=== PATIENT | male | born 1970 | race Hispanic/Latino ===

== ENCOUNTER 2019-12-08 20:42 | Observation (INO) | payer OTHER ==
[2019-12-08] MEDS ORDERED: NA CHLORIDE 0.9% 1,000 ML ONE (22:13)
[2019-12-08] MEDS ORDERED: MORPHINE 4 MG/ML SYR ONE (22:13)
[2019-12-08] MEDS ORDERED: FAMOTIDINE 20 MG/2 ML VIAL IV ONE (22:13)
[2019-12-08] MEDS ORDERED: ONDANSETRON 4 MG/2 ML VIAL ONE (22:14)
[2019-12-08 22:23] LABS: Absolute Lymphocytes (CBC) 0.4 K/uL (0.7-4.9); Hematocrit 34.9 % (39.6-49.0); Lymphocytes % 10.7 % (15.3-44.8); MPV 8.9 fL (7.6-11.3); Protime INR 1.7; RBC Red Blood Cell Count 3.56 M/uL (4.33-5.43)
[2019-12-08 22:41] LABS: ALT/SGPT 40 U/L (12-78); AST/SGOT 68 U/L (15-37); Alkaline Phosphatase 102 U/L (45-117); BUN Blood Urea Nitrogen 13 mg/dL (7-18); Bicarbonate 27 mmol/L (21-32); Bilirubin Total 3.4 mg/dL (0.2-1.0); Glucose Level 92 mg/dL (74-106); Lipase 115 U/L (73-393); Magnesium 1.7 mg/dL (1.8-2.4); NT PRO-BNP 60 pg/mL (<125); Potassium 3.8 mmol/L (3.5-5.1); Protein, Total 7.4 g/dL (6.4-8.2); Sodium Level 140 mmol/L (136-145); Troponin (Emerg Dept Use Only) < 0.02 ng/mL (0.0-0.045)
[2019-12-08] MEDS ORDERED: MAGNESIUM SULFATE 1 gm IVPB 1 GM/100 ML BAG IV ONE (23:48)
[2019-12-09 00:13] LABS: Blood Morphology Comment NOT SEEN (NOT SEEN); Platelet Estimate DECR; White Blood Cell Scan OK
[2019-12-09] MEDS ORDERED: MORPHINE 4 MG/ML SYR IV PRN (01:22)
[2019-12-09] MEDS ORDERED: ONDANSETRON 4 MG/2 ML VIAL IV PRN (01:22)
--- NOTE | 2019-12-09 01:24 | ER ---
Nurse's Notes [facility] Name: Antoine Gomez Age: 49 yrs Sex: Male : 1970 Arrival Date: 12/08/2019 Time: 20:46 Bed 20 Private MD: Diagnosis: Ascites;Ventral hernia;Unspecified cirrhosis of liver-right lobe of liver mass;Abdominal tenderness;Hypomagnesemia;Pleural effusion in conditions classified elsewhere-bilateral Presentation: 12/07 20:50 Chief complaint: Patient states: He has had a hernia for the past year and it started aj1 to have blisters on it last week and then today those blisters started bleeding. Coronavirus screen: The patient has NOT traveled to a country currently being monitored by the CDC within the last 14 days. Ebola Screen: Patient denies travel to an Ebola-affected area in the 21 days before illness onset. Initial Sepsis Screen: Does the patient meet any 2 criteria? No. Patient's initial sepsis screen is negative. Does the patient have a suspected source of infection? No. Patient's initial sepsis screen is negative. Risk Assessment: Do you want to hurt yourself or someone else? Patient reports no desire to harm self or others. 20:50 Method Of Arrival: Ambulatory aj1 20:50 Acuity: CONSUELO 3 aj1 22:30 Onset of symptoms is unknown. Triage Assessment: 20:52 General: Appears in no apparent distress. comfortable, Behavior is calm, cooperative, aj1 appropriate for age. Pain: Complains of pain in abdomen. Neuro: Level of Consciousness is awake, alert, obeys commands, Oriented to person, place, time, situation. Cardiovascular: Patient's skin is warm and dry. Respiratory: Airway is patent Respiratory effort is even, unlabored, Respiratory pattern is regular, symmetrical. Derm: Wound noted abdomen Wound is hernia is protruding from stomach with some wounds noted to area. Scant amount of bleeding noted at this time. Historical: - Allergies: 20:52 No Known Allergies; aj1 - Home Meds: 20:52 "high blood pressure pills" [Active]; Lasix Oral [Active]; aj1 - PMHx: 20:52 Hypertension; liver cancer; aj1 - Immunization history:: Flu vaccine is not up to date. - Social history:: Smoking status: Patient/guardian denies using tobacco. - Family history:: not pertinent. Screenin/12 04:50 Abuse screen: Denies threats or abuse. Denies injuries from another. Nutritional wh screening: No deficits noted. Tuberculosis screening: No symptoms or risk factors identified. Fall Risk None identified. Assessment: 12/07 22:30 General: Appears in no apparent distress. Behavior is calm, cooperative, appropriate wh for age. Pain: Complains of pain in umbilical area Pain does not radiate. Pain currently is 8 out of 10 on a pain scale. Quality of pain is described as aching. Neuro: Level of Consciousness is awake, alert, obeys commands, Oriented to person, place, time, situation, Appropriate for age. Cardiovascular: Heart tones S1 S2. Respiratory: Airway is patent Respiratory effort is even, unlabored, Respiratory pattern is regular, symmetrical, Breath sounds are clear bilaterally. GI: Abdomen is round distended, noted to have ascites, Bowel sounds Abd is rigid Reports lower abdominal pain. GI: umbillical hernia. : No signs and/or symptoms were reported regarding the genitourinary system. : EENT: No signs and/or symptoms were reported regarding the EENT system. Derm: Skin is intact, is healthy with good turgor, Skin is pink, warm \\T\\ dry. normal. Musculoskeletal: Circulation, motion, and sensation intact. 23:35 Reassessment: Patient appears in no apparent distress at this time. No changes from previously documented assessment. Patient and/or family updated on plan of care and expected duration. Pain level reassessed. Patient is alert, oriented x 3, equal unlabored respirations, skin warm/dry/pink. 12/08 00:35 Reassessment: Patient appears in no apparent distress at this time. No changes from previously documented assessment. Patient and/or family updated on plan of care and expected duration. Pain level reassessed. Patient is alert, oriented x 3, equal unlabored respirations, skin warm/dry/pink. 02:05 Reassessment: Patient appears in no apparent distress at this time. No changes from previously documented assessment. Patient and/or family updated on plan of care and expected duration. Pain level reassessed. Patient is alert, oriented x 3, equal unlabored respirations, skin warm/dry/pink. Explained POC need for admit, will stay here for a while as ER hold. 10:48 Reassessment: Pt. went to radiology for paracentesis, will go straight to the floor rb1 after the procedure. 11:25 Reassessment: Called report to JESENIA Hansen. Information from the SB[facility] was given. All rb1 questions asked and answered. Vital Signs: 12/07 20:50 BP 134 / 94; Pulse 79; Resp 18; Temp 98.3; Pulse Ox 97% on R/A; Weight 77.11 kg (R); aj1 Height 5 ft. 8 in. (172.72 cm) (R); Pain 9/10; 23:00 BP 122 / 91; Pulse 80; Resp 18; Pulse Ox 97% on R/A; wh 12/08 00:00 BP 119 / 90; Pulse 75; Resp 18; Pulse Ox 96% on R/A; wh 01:00 BP 120 / 98; Pulse 78; Resp 16; Pulse Ox 97% ; wh 02:00 BP 133 / 90; Pulse 74; Resp 18; Pulse Ox 96% on R/A; wh 12/07 20:50 Body Mass Index 25.85 (77.11 kg, 172.72 cm) aj ED Course: 12/07 20:46 Patient arrived in ED. jg7 20:51 Triage completed. aj1 20:52 Arm band placed on Patient placed in waiting room, Patient notified of wait time. aj 21:16 Rufino Borges MD is Attending Physician. [facility] 21:30 Annie Ken is Primary Nurse. 22:15 Inserted saline lock: 18 gauge in right antecubital area, using aseptic technique. Blood collected. 22:20 XRAY Chest (1 view) In Process Unspecified. EDMS 22:30 Patient has correct armband on for positive identification. Placed in gown. Bed in low wh position. Call light in reach. Side rails up X 1. equipment monitor phototypesetting on. Pulse ox on. NIBP on. 12/08 01:22 Ryan Jones MD is Hospitalizing Provider. [facility] 02:30 No provider procedures requiring assistance completed. Patient admitted, IV remains in place. Administered Medications: 12/07 22:08 Drug: NS 0.9% 1000 ml Route: IV; Rate: 125 ml/hr; Site: right antecubital; 12/08 04:47 Follow up: Response: No adverse reaction; IV Status: Order to discontinue infusion 12/07 22:10 Drug: morphine 2 mg {Note: RASS 0.} Route: IVP; Site: right antecubital; 12/08 04:47 Follow up: Response: No adverse reaction; Pain is decreased; RASS: Alert and Calm (0) 12/07 22:12 Drug: Pepcid 20 mg Route: IVP; Site: right antecubital; 12/08 04:47 Follow up: Response: No adverse reaction 12/07 22:14 Drug: Zofran (Ondansetron) 4 mg Route: IVP; Site: right antecubital; 12/08 04:47 Follow up: Response: No adverse reaction; Nausea is decreased 12/07 23:47 Drug: Magnesium Sulfate 1 grams Route: IVPB; Infused Over: 1 hrs; Site: right antecubital; 12/08 04:48 Follow up: Response: No adverse reaction; IV Status: Completed infusion 03:25 Not Given (Duplicate Order; Documented in [facility]): Vitamin K1 10 mg Sub-Q once Outcome: 01:23 Decision to Hospitalize by Provider. [facility] 02:30 Admitted to ER Hold. Please see [facility] for further documentation. 02:30 Condition: stable 02:30 Instructed on the need for admit. 10:48 Patient left the ED. rb1 10:48 Admitted to [facility] 10:48 Condition: stable 10:48 Instructed on the need for admit. Signatures: Dispatcher [employer] EDCaryn Perez RN RN aj1 Rufino Borges MD MD cha Barber, Rebecca, RN RN rb1 Annie Ken Rajat Hughes RN RN mg2 Enedina Barajas jg7 Corrections: (The following items were deleted from the chart) 19:27 11:19 Patient left the ED. mg2 rb1
--- NOTE | 2019-12-09 01:24 | EDPHYS ---
Physician Documentation [facility] Name: Antoine Gomez Age: 49 yrs Sex: Male : 1970 Arrival Date: 12/08/2019 Time: 20:46 Bed 20 Private MD: ED Physician Rufino Borges HPI: 12/07 21:38 This 49 yrs old Male presents to ER via Ambulatory with complaints of BLEEDING taya HERNIA. 21:38 The patient presents with abdominal pain abdominal distention. Onset: The taya symptoms/episode began/occurred 2 week(s) ago. The symptoms do not radiate. Associated signs and symptoms: none. The symptoms are described as crampy. Modifying factors: The symptoms are alleviated by supine position, the symptoms are aggravated by pressure, walking. The patient has not experienced similar symptoms in the past. Historical: - Allergies: 20:52 No Known Allergies; aj1 - Home Meds: 20:52 "high blood pressure pills" [Active]; Lasix Oral [Active]; aj1 - PMHx: 20:52 Hypertension; liver cancer; aj1 - Immunization history:: Flu vaccine is not up to date. - Social history:: Smoking status: Patient/guardian denies using tobacco. - Family history:: not pertinent. ROS: 21:38 Constitutional: Negative for fever, chills, and weight loss, Eyes: Negative for injury, taya pain, redness, and discharge, ENT: Negative for injury, pain, and discharge, Neck: Negative for injury, pain, and swelling, Cardiovascular: Negative for chest pain, palpitations, and edema, Respiratory: Negative for shortness of breath, cough, wheezing, and pleuritic chest pain, Back: Negative for injury and pain, : Negative for injury, bleeding, discharge, and swelling, MS/Extremity: Negative for injury and deformity, Skin: Negative for injury, rash, and discoloration, Neuro: Negative for headache, weakness, numbness, tingling, and seizure, Psych: Negative for depression, anxiety, suicide ideation, homicidal ideation, and hallucinations, Allergy/Immunology: Negative for hives, rash, and allergies, Endocrine: Negative for neck swelling, polydipsia, polyuria, polyphagia, and marked weight changes, Hematologic/Lymphatic: Negative for swollen nodes, abnormal bleeding, and unusual bruising. 21:38 Abdomen/GI: Positive for abdominal pain, abdominal distension, of the right upper quadrant, left upper quadrant, right lower quadrant and left lower quadrant. Exam: 21:38 Constitutional: This is a well developed, well nourished patient who is awake, alert, taya and in no acute distress. Head/Face: Normocephalic, atraumatic. Eyes: Pupils equal round and reactive to light, extra-ocular motions intact. Lids and lashes normal. Conjunctiva and sclera are non-icteric and not injected. Cornea within normal limits. Periorbital areas with no swelling, redness, or edema. ENT: Nares patent. No nasal discharge, no septal abnormalities noted. Tympanic membranes are normal and external auditory canals are clear. Oropharynx with no redness, swelling, or masses, exudates, or evidence of obstruction, uvula midline. Mucous membranes moist. Neck: Trachea midline, no thyromegaly or masses palpated, and no cervical lymphadenopathy. Supple, full range of motion without nuchal rigidity, or vertebral point tenderness. No Meningismus. Chest/axilla: Normal chest wall appearance and motion. Nontender with no deformity. No lesions are appreciated. Cardiovascular: Regular rate and rhythm with a normal S1 and S2. No gallops, murmurs, or rubs. Normal PMI, no JVD. No pulse deficits. Respiratory: Lungs have equal breath sounds bilaterally, clear to auscultation and percussion. No rales, rhonchi or wheezes noted. No increased work of breathing, no retractions or nasal flaring. Back: No spinal tenderness. No costovertebral tenderness. Full range of motion. Male : Normal genitalia with no discharge or lesions. Skin: Warm, dry with normal turgor. Normal color with no rashes, no lesions, and no evidence of cellulitis. MS/ Extremity: Pulses equal, no cyanosis. Neurovascular intact. Full, normal range of motion. Neuro: Awake and alert, GCS 15, oriented to person, place, time, and situation. Cranial nerves II-XII grossly intact. Motor strength 5/5 in all extremities. Sensory grossly intact. Cerebellar exam normal. Normal gait. Psych: Awake, alert, with orientation to person, place and time. Behavior, mood, and affect are within normal limits. 21:38 Abdomen/GI: Inspection: distension, Bowel sounds: normal, Palpation: mild abdominal tenderness, in all quadrants, Liver: no appreciated palpable abnormalities, Hernia: noted in the umbilical area, incarceration, is not appreciated, tenderness, that is mild, bowel sounds are appreciated on auscultation. Vital Signs: 20:50 BP 134 / 94; Pulse 79; Resp 18; Temp 98.3; Pulse Ox 97% on R/A; Weight 77.11 kg (R); aj1 Height 5 ft. 8 in. (172.72 cm) (R); Pain 9/10; 23:00 BP 122 / 91; Pulse 80; Resp 18; Pulse Ox 97% on R/A; wh 12/08 00:00 BP 119 / 90; Pulse 75; Resp 18; Pulse Ox 96% on R/A; 01:00 BP 120 / 98; Pulse 78; Resp 16; Pulse Ox 97% ; 02:00 BP 133 / 90; Pulse 74; Resp 18; Pulse Ox 96% on R/A; 12/07 20:50 Body Mass Index 25.85 (77.11 kg, 172.72 cm) [facility] MDM: 12/07 21:17 Patient medically screened. [facility] 21:40 Data reviewed: vital signs, nurses notes, lab test result(s), EKG, radiologic studies, [facility] CT scan, plain films. 12/07 21:40 Order name: Basic Metabolic Panel; Complete Time: 23:26 [facility] 12/07 21:40 Order name: CBC with Diff; Complete Time: 01: [facility] 12/07 21:40 Order name: LFT's; Complete Time: 23:26 [facility] 12/07 21:40 Order name: Magnesium; Complete Time: 23:26 [facility] 12/07 21:40 Order name: NT PRO-BNP; Complete Time: 23:26 [facility] 12/07 21:40 Order name: PT-INR; Complete Time: 23:26 [facility] 12/07 21:40 Order name: Troponin (emerg Dept Use Only); Complete Time: 23:26 [facility] 12/07 21:40 Order name: Creatinine for Radiology; Complete Time: 01: [facility] 12/07 21:40 Order name: Lipase; Complete Time: 23:26 [facility] 12/07 21:40 Order name: AMMONIA; Complete Time: 23:26 [facility] 12/07 22:12 Order name: Lactate; Complete Time: 23:26 [facility] 12/07 22:30 Order name: CBC Smear Scan; Complete Time: 01:01 [facility] 12/08 06:04 Order name: Protime (+INR); Complete Time: 07:38 [facility] 12/08 06:04 Order name: PTT, Activated Partial Thromb; Complete Time: 07:38 [facility] 12/07 21:40 Order name: XRAY Chest (1 view) [facility] 12/07 21:40 Order name: EKG; Complete Time: 21:43 [facility] 12/07 21:40 Order name: Cardiac monitoring; Complete Time: 22:01 [facility] 12/07 21:40 Order name: EKG - Nurse/Tech; Complete Time: 22:01 [facility] 12/07 21:40 Order name: IV Saline Lock; Complete Time: 22:01 [facility] 12/07 21:40 Order name: CT Abd/Pelvis - PO and IV Contrast [facility] 12/08 06:12 Order name: Ammonia; Complete Time: 07:38 [facility] 12/08 06:15 Order name: CBC with Automated Diff [facility] 12/08 06:16 Order name: Comprehensive Metabolic Panel; Complete Time: 07:38 [facility] 12/08 10:56 Order name: CT [facility] 12/07 21:40 Order name: Labs collected and sent; Complete Time: 22: [facility] 12/07 21:40 Order name: O2 Per Protocol; Complete Time: 22: [facility] 12/07 21:40 Order name: O2 Sat Monitoring; Complete Time: 22:02 [facility] Administered Medications: 22:08 Drug: NS 0.9% 1000 ml Route: IV; Rate: 125 ml/hr; Site: right antecubital; 12/08 04:47 Follow up: Response: No adverse reaction; IV Status: Order to discontinue infusion 12/07 22:10 Drug: morphine 2 mg {Note: RASS 0.} Route: IVP; Site: right antecubital; 12/08 04:47 Follow up: Response: No adverse reaction; Pain is decreased; RASS: Alert and Calm (0) 12/07 22:12 Drug: Pepcid 20 mg Route: IVP; Site: right antecubital; 12/08 04:47 Follow up: Response: No adverse reaction 12/07 22:14 Drug: Zofran (Ondansetron) 4 mg Route: IVP; Site: right antecubital; 12/08 04:47 Follow up: Response: No adverse reaction; Nausea is decreased 12/07 23:47 Drug: Magnesium Sulfate 1 grams Route: IVPB; Infused Over: 1 hrs; Site: right antecubital; 12/08 04:48 Follow up: Response: No adverse reaction; IV Status: Completed infusion 03:25 Not Given (Duplicate Order; Documented in [employer]): Vitamin K1 10 mg Sub-Q once Disposition: 12/09/19 01:23 Hospitalization ordered by Ryan Jones for Observation. Preliminary diagnosis are Ascites, Ventral hernia, Unspecified cirrhosis of liver - right lobe of liver mass, Abdominal tenderness, Hypomagnesemia, Pleural effusion in conditions classified elsewhere - bilateral. - Bed requested for Telemetry/MedSurg (observation). - Status is Observation. mg2 - Condition is Fair. - Problem is new. - Symptoms have improved. Signatures: Dispatcher [employer] EDCaryn Perez RN RN aj1 Verena Naylor RN RN dw Anderson, Corey, MD MD cha Habalo, Winsy Rajat Hughes RN RN mg2 Corrections: (The following items were deleted from the chart) 01:24 01:23 Hospitalization Ordered by Ryan Jones MD for Observation. Preliminary taya diagnosis is Ascites; Ventral hernia; Unspecified cirrhosis of liver - right lobe of liver mass. Bed requested for Telemetry/MedSurg (observation). Status is Observation. Condition is Fair. Problem is new. Symptoms have improved. taya 02:05 01:24 12/09/2019 01:23 Hospitalization Ordered by Ryan Jones MD for Observation. taya Preliminary diagnosis is Ascites; Ventral hernia; Unspecified cirrhosis of liver - right lobe of liver mass; Abdominal tenderness; Hypomagnesemia. Bed requested for Telemetry/MedSurg (observation). Status is Observation. Condition is Fair. Problem is new. Symptoms have improved. taya 02:06 02:05 12/09/2019 01:23 Hospitalization Ordered by Ryan Jones MD for Observation. dw Preliminary diagnosis is Ascites; Ventral hernia; Unspecified cirrhosis of liver - right lobe of liver mass; Abdominal tenderness; Hypomagnesemia; Pleural effusion in conditions classified elsewhere - bilateral. Bed requested for Telemetry/MedSurg (observation). Status is Observation. Condition is Fair. Problem is new. Symptoms have improved. taya 09:49 02:06 12/09/2019 01:23 Hospitalization Ordered by Ryan Jones MD for Observation. dw Preliminary diagnosis is Ascites; Ventral hernia; Unspecified cirrhosis of liver - right lobe of liver mass; Abdominal tenderness; Hypomagnesemia; Pleural effusion in conditions classified elsewhere - bilateral. Bed requested for [facility] ER HOLD. Status is Observation. Condition is Fair. Problem is new. Symptoms have improved. dw 11:19 09:49 12/09/2019 01:23 Hospitalization Ordered by Ryan Jones MD for Observation. mg2 Preliminary diagnosis is Ascites; Ventral hernia; Unspecified cirrhosis of liver - right lobe of liver mass; Abdominal tenderness; Hypomagnesemia; Pleural effusion in conditions classified elsewhere - bilateral. Bed requested for Telemetry/MedSurg (observation). Status is Observation. Condition is Fair. Problem is new. Symptoms have improved. dw
[2019-12-09] MEDS ORDERED: LACTULOSE 20 GM/30 ML UCUP PO PRN (01:27)
[2019-12-09] MEDS ORDERED: FUROSEMIDE 20 MG/ 2ML VIAL IV ONE ×2 (01:27→08:00)
[2019-12-09] MEDS ORDERED: ALBUMIN HUMAN 25% 100 ML IV ONE ×3 (01:27→09:00)
[2019-12-09] MEDS ORDERED: VITAMIN K (ADULT) 10 MG/ML SQ SCH ×2 (02:00→08:00)
[2019-12-09 03:28] VITALS: BMI 25.8
[2019-12-09 06:02] LABS: Protime INR 1.65
[2019-12-09 06:12] LABS: Absolute Lymphocytes (CBC) 0.3 K/uL (0.7-4.9); Basophils % 0.7 % (0-1.3); Hematocrit 33.3 % (39.6-49.0); Lymphocytes % 10.9 % (15.3-44.8); MPV 9.2 fL (7.6-11.3); RBC Red Blood Cell Count 3.42 M/uL (4.33-5.43)
[2019-12-09 06:16] LABS: ALT/SGPT 39 U/L (12-78); AST/SGOT 67 U/L (15-37); Albumin 2.3 g/dL (3.4-5.0); Alkaline Phosphatase 88 U/L (45-117); BUN Blood Urea Nitrogen 12 mg/dL (7-18); Bicarbonate 28 mmol/L (21-32); Bilirubin Total 3.6 mg/dL (0.2-1.0); Glucose Level 77 mg/dL (74-106); Potassium 3.6 mmol/L (3.5-5.1); Protein, Total 7.4 g/dL (6.4-8.2); Sodium Level 139 mmol/L (136-145)
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
--- NOTE | 2019-12-09 07:56 | RAD REPORT ---
EXAM DESCRIPTION: Irvin Single View12/08/2019 10:19 pm CLINICAL HISTORY: Abdominal pain COMPARISON: none FINDINGS: Moderate bilateral pleural effusions left greater than right with bibasilar atelectasis The heart is normal size Mediastinum is mildly prominent which may indicate lymphadenopathy or vascularity
[2019-12-09] MEDS: VANCOMYCIN 1.25 GM in NA CHLORIDE 0.9% 250 ML IVPB SCH ×2 (08:00→20:03)
[2019-12-09 08:23] LABS: Anisocytosis 1+; Blood Morphology Comment NOTED (NOT SEEN); Platelet Estimate DECR; White Blood Cell Scan OK
[2019-12-09] MEDS ORDERED: FUROSEMIDE 20 MG/ 2ML VIAL ONE (08:47)
[2019-12-09] MEDS ORDERED: VITAMIN K (ADULT) 10 MG/ML ONE (08:48)
[2019-12-09] MEDS ORDERED: ALBUMIN HUMAN 25% 50 ML IV ONE (08:48)
--- NOTE | 2019-12-09 08:51 | EKG ---
Test Date: 2019-12-08 Test Time: 21:59:35 Tap And Die Maker Technician: SY MEASUREMENT RESULTS: Intervals: Rate: 78 MO: 98 QRSD: 96 QT: 388 QTc: 442 [place]: P: -5 MO: 98 QRS: -5 T: 56 INTERPRETIVE STATEMENTS: Sinus rhythm with short MO Low voltage QRS Borderline ECG No previous ECG available for comparison Electronically Signed On 12-09-19 08:50:26 CDT by Jeremy Ferrer
[2019-12-09] MEDS ORDERED: INFLUENZA VACCINE (for 3y+) 0.5 ML DOSE IMVAC ONE (09:00)
[2019-12-09] MEDS: PROPRANOLOL HCL 10 MG TAB PO SCH ×2 (09:00→20:12)
[2019-12-09] MEDS: SPIRONOLACTONE 25 MG TABLET PO SCH ×2 (09:00→20:09)
--- NOTE | 2019-12-09 10:39 | RAD REPORT ---
EXAM DESCRIPTION: CT - Abdomen Pelvis W Contrast - 12/09/2019 6:29 am CLINICAL HISTORY: 49 years Male ABD PAIN COMPARISON: None TECHNIQUE: Images were obtained in axial, sagittal, and coronal planes. Intravenous contrast was adm inistered. This exam was performed according to our departmental dose-optimization program which includes use of Automated Exposure Control, adjustment of the mA and/or kV according to patient size and/or use of i terative reconstruction technique. FINDINGS: Severe ascites. Nodular hepatic contour consistent with cirrhotic change. 7.1 x 6.2 cm ill -defined nodular low-attenuation lesion posterior right lobe of liver. Hepatocellular carcinoma not e xcluded. Spleen is enlarged measuring 19.3 cm in greatest dimension. Large varices epigastric region. Recanali zation umbilical vein with extensive varices in anterior abdominal wall. large periumbilical hernia which contains ascitic fluid. Bilateral inguinal hernias containing mesent felix fat as well as ascitic fluid on right. No obstructing renal calcifications bilaterally. No hydronephrosis bilaterally. Unremarkable bladder. No dilatation abdominal aorta. Patent portal vein. No adenopathy. Appendix not well identified. Possible mucosal thickening small and large bowel however evaluation li mited in the presence of ascites. No bowel obstruction or perforation. Large bilateral pleural effusions. Airspace attenuation posterior lower lobes bilaterally likely comp ressive atelectatic change IMPRESSION: Severe ascites. Cirrhotic change involving liver. Splenomegaly. Extensive epigastric and anterior abdominal wall varices. 7.1 cm ill-defined low-attenuation lesion posterior right lobe liver. Hepatocellular carcinoma not ex cluded. Large periumbilical hernia which contains only ascitic fluid. Electronically signed by: Corina Asif MD 12/09/2019 12:51 AM CDT Due to temporary technical issues with the PACS/Fluency reporting system, reports are being signed by the in house radiologist as a courtesy to ensure prompt reporting. The interpreting radiologist is f ully responsible for the content of the report.
[2019-12-09] MEDS: PIPER/TAZO/NS 3.375gm 3.375 GM/100 ML BAG IVPB SCH ×2 (12:08→17:12)
--- NOTE | 2019-12-09 12:40 | RAD REPORT ---
EXAM DESCRIPTION: US - Paracentesis Proc Guidance - 12/09/2019 11:33 am CLINICAL HISTORY: Liver disease with ascites FINDINGS: The risks, benefits and alternatives to the procedure were explained to the patient and in formed consent obtained. The skin and subcutaneous tissues were anesthetized with Lidocaine. Under sonographic guidance an 8 F rench catheter was placed into the right lower quadrant. 4.5 liters of fluid was removed and sent to the lab. The fluid was mostly clear and somewhat blood tinged. The patient experienced no immediate complication. IMPRESSION: Paracentesis
[2019-12-09 15:35] LABS: Body Fluid Source PERITONEAL
[2019-12-09 15:37] LABS: Appearance TURBID (CLEAR); Body Fluid WBC 158 /mm^3; Color of fluid Orange (COLORLESS)
--- NOTE | 2019-12-09 16:16 | P.PN ---
Subjective Date of Service: 12/09/19 Chief Complaint: Alcoholic liver cirrhosis; large volume ascites; history of HCC Subjective: No new changes, Tolerating diet (- [facility] for paracentesis today) Physical Examination - Vital Signs Temperature: 97.5 F Blood Pressure: 108/70 Pulse: 88 Respirations: 18 Pulse Ox (%): 98 - Physical Exam General: Alert, In no apparent distress HEENT: Atraumatic, Normocephalic, Scleral icterus (mild ) Respiratory: Clear to auscultation bilaterally, Normal air movement Cardiovascular: Normal pulses, Regular rate/rhythm, Normal S1 S2 Gastrointestinal: Normal bowel sounds, Soft and benign, Other (large umbilical hernia with abrasions ), Distended, Ascites Integumentary: Skin breakdown (over umbilical hernia ) - Studies Laboratory Data (last 24 hrs) 12/08/19 21:55: Creatinine 0.80 12/08/19 21:55: PT 19.7 H, INR 1.70 12/08/19 21:55: WBC 3.3 L, Hgb 12.3 L, Hct 34.9 L, Plt Count 71 L 12/08/19 21:55: Sodium 140, Potassium 3.8, BUN 13, Creatinine 0.76, Glucose 92, Magnesium 1.7 L, Total Bilirubin 3.4 H, AST 68 H, ALT 40, Alkaline Phosphatase 102, Lipase 115 Assessment & Plan Physician Review: Patient Assessed, Agree with Above Assessment and Plan Physician Review Additional Text: # Umbilical Hernia Abrasions -due to distention and abdominal binder use -follow-up post paracentesis -patient advised to do regular paracentesis to keep abdominal ascites and distention down to allow of proper wound healing. -will apply topical antibiotics # Recurrent Ascities - s/p planned tap today -follow fluid for c/s # Presumed Liver mass on CT -pt report hx of previously untreated liver cancer - will consult GI -follow alpha fetoprotein level # Coagulopathy -s/p vit K given , follow daily INR and dose prn # DVT prop- SCD
[2019-12-09] MEDS: BACITRACIN OINTMENT 15 GM TUBE TOP SCH (17:12)
[2019-12-10] MEDS: BACITRACIN OINTMENT 15 GM TUBE TOP SCH ×2 (01:00→09:54)
[2019-12-10] MEDS: PIPER/TAZO/NS 3.375gm 3.375 GM/100 ML BAG IVPB SCH ×2 (01:00→09:52)
[2019-12-10 05:59] LABS: Absolute Lymphocytes (CBC) 0.3 K/uL (0.7-4.9); Basophils % 0.6 % (0-1.3); Lymphocytes % 9.4 % (15.3-44.8); MPV 9.6 fL (7.6-11.3); RBC Red Blood Cell Count 3.37 M/uL (4.33-5.43)
[2019-12-10 06:05] LABS: ALT/SGPT 35 U/L (12-78); AST/SGOT 59 U/L (15-37); Alkaline Phosphatase 82 U/L (45-117); BUN Blood Urea Nitrogen 13 mg/dL (7-18); Bicarbonate 28 mmol/L (21-32); Bilirubin Total 3.2 mg/dL (0.2-1.0); Glucose Level 76 mg/dL (74-106); Potassium 3.6 mmol/L (3.5-5.1); Protein, Total 6.4 g/dL (6.4-8.2); Sodium Level 138 mmol/L (136-145)
[2019-12-10] MEDS: VANCOMYCIN 1.25 GM in NA CHLORIDE 0.9% 250 ML IVPB SCH (08:00)
[2019-12-10 09:00] VITALS: BP 91/58; TEMP 97.6
[2019-12-10] MEDS: PROPRANOLOL HCL 10 MG TAB PO SCH (09:00)
[2019-12-10] MEDS: SPIRONOLACTONE 25 MG TABLET PO SCH (09:53)
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
[2019-12-10 12:16] VITALS: O2SAT 98
[2019-12-14 02:24] LABS: HBsAG Nonreactive (Nonreactive)
[2019-12-14 20:47] LABS: Alpha Fetoprotein-Tumor Marker 28189.1 ng/mL (<6.1)
[2019-12-20 08:47] LABS: Hep C Virus RNA (PCR)log SENT
== END 2019-12-10 12:36 | disposition home or self-care (01) ==
LOC: ER 20:42 → ERHOLD 12-09 02:07 → 2ND 12-09 11:43
PROVIDERS: ADMIT Hospitalist; ATTEND Hospitalist
DX: K70.31 Alcoholic cirrhosis of liver with ascites (principal); C22.0 Liver cell carcinoma; B19.20 Unspecified viral hepatitis C without hepatic coma; K42.9 Umbilical hernia without obstruction or gangrene; F10.21 Alcohol dependence, in remission; L03.311 Cellulitis of abdominal wall; E83.42 Hypomagnesemia; J91.8 Pleural effusion in other conditions classified elsewhere; R16.1 Splenomegaly, not elsewhere classified; I86.4 Gastric varices; I10 Essential (primary) hypertension; Z79.899 Other long term (current) drug therapy
CPT/HCPCS: 96365; 96361; 93005; 87070; 85025 ×3; 80048; 36415 ×2; 82140 ×2; 88108; 89050; 83735; 85610 ×2; 80076; 83605; 88305; 85730; 84484; 83690; 80053 ×2; 82105; 83880; 80074; 74177; 71045; 49083; 96375; 99285; 96366; Q9967; J1940 ×2; J3430 ×2; J3475; J2543 ×2; P9047 ×2; J7030 ×2; J2405; G0378 ×3; 87522

== ENCOUNTER 2020-01-28 07:00 | Emergency (ER) | payer OTHER ==
--- OUTSIDE RECORDS SUMMARY | 2020-01-28 07:04 | XMS REPORT ---
:1970 Author Organization [facility] t Address [address] [place] [address] Care Team Providers Name Role Phone MALVIN Unavailable Unavailable Problems This patient has no known problems. Allergies, Adverse Reactions, Alerts This patient has no known allergies or adverse reactions. Medications This patient has no known medications. Results Test Description Test Time Test Comments Text Results Atomic Results Result Comments Body Fluid Culture 2019-01-05 10:34:00 Test Item Value Reference Range Comments Body Fluid Culture (test code = FLUIDC) NO GROWTH IN 5 DAYS Body Fluid Culture (test code = FLUIDC1) GS Body Fluid Culture (test code = FLUIDC1) NOS Hematology - [id number] 08:57:00 Test Item Value Reference Range Comments Hematology - Fluids Peritoneal Fluid (test code = CCDIFFBF) Hematology - Fluids Cloudy/Turbid Clear (test code = CCDIFFCL) Hematology - Fluids [place] (test code = CCDIFFBFCOL) Hematology - Fluids EDTA (test code = CCDIFFTUBE) Hematology - Fluids 475 /cumm (test code = CCDIFFWBCA) Hematology - Fluids 97232 /cumm (test code = CCDIFFRBCA) Hematology - Fluids Note: The referenc e range and other (test code = method performan cespecifications CCDIFFREFR) have not been es tablished for this bodyfluid. The test result must be integrat ed into the clinicalcontext for interpretation. Source: PERITONEAL FLUIDHematology - [id number] 08:57:00 Test Item Value Reference Range Comments Hematology - Fluids (test code 22 % = CCDIFFBFNE) Hematology - Fluids (test code 57 % = CCDIFFLY) Hematology - Fluids (test code 21 % N on-Hematic cells consist of = CCDIFFNON) macrophages, endothelial,hist iocytic and mesothelial cell s. Source: PERITONEAL FLUIDHematology - [id number] 08:57:00 Test Item Value Reference Range Comments Hematology - Fluids (test code M esothelial cells, monocytes, = PATHF) lymphocytes and neutrophils.Bhupinder Zapata, [facility] EDMONDPT Code: 08223 (Wr ight-stained cytospin) Source: PERITONEAL [id number] 06:55:00 Test Item Value Reference Range Comments Chemistry (test code = 137 mmol/L 136-145 NA-T) Chemistry (test code = 3.7 mmol/L 3.5-5.1 K-T) Chemistry (test code = 106 mmol/L 98-107 CL) Chemistry (test code = 26 mmol/L 22-29 CO2) Chemistry (test code = 9 mmol/L 10-20 ANGP) Chemistry (test code = 16 mg/dL 8.9-20.6 BUN) Chemistry (test code = 0.68 mg/dL 0.7-1.3 CREATT) Chemistry (test code = Greater than 90 Referenc e Range for EGFRMDRD) Estimated GFR: Greater jennifer n 90 mL/min/1.73 m2NO TE:The MDRD equation has not been validated for us e with theelderly (over 70 years of age), pregnan t women, patientswith ser ious comorbid conditi on or persons with ext remes ofbody size, mus artemio mass, or nutritional s tatus. Chemistry (test code = 93 mg/dL 70-105 GLU-T) Chemistry (test code = 8.1 mg/dL 7.8-10.44 CA) [id number] 06:41:00 Test Item Value Reference Range Comments Hematology (test code = WBCT) 5.0 thou/uL 4.8-10.8 Hematology (test code = RBCT) 3.81 mill/uL 4.70-6.10 Hematology (test code = HGBT) 13.0 g/dL 14.0-18.0 Hematology (test code = HCTT) 37.7 % 42.0-52.0 Hematology (test code = MCV) 98.8 fL 78.0-98.0 Hematology (test code = MCH) 34.1 pg 27.0-31.0 Hematology (test code = MCHC) 34.5 g/dL 32.0-36.0 Hematology (test code = RDW) 14.2 % 11.5-14.5 Hematology (test code = PLTT) 77 thou/uL 130-400 Hematology (test code = MPV) 8.8 fL 7.4-10.4 Hematology (test code = %NEUT) 69.1 % 42.0-75.0 Hematology (test code = %LYMPH) 15.9 % 21.0-51.0 Hematology (test code = %MONO) 11.9 % 0.0-10.0 Hematology (test code = %EOS) 2.6 % 0.0-10.0 Hematology (test code = %BASO) 0.5 % 0.0-1.0 Hematology (test code = NEUT#) 3.4 thou/uL 1.40-6.50 Hematology (test code = LYMPH#) 0.8 thou/uL 1.20-3.40 Hematology (test code = MONO#) 0.6 thou/uL 0.11-0.59 Hematology (test code = EOS#) 0.1 thou/uL 0.0-0.7 Hematology (test code = BASO#) 0.0 thou/uL 0.0-0.2 [id number] 22:42:00 Test Item Value Reference Range Comments Coagulation (test code = 19.8 SEC 12.0-14.7 PT-T) Coagulation (test code = 1.7 ATTENTION: READ INR) CAREFULLY--- -The recommended therapeutic ranges for oral anticoa gulanttreatments are: Low Intensity: 1.5 - 2.0 Moderate Inten sity: 2.0 - 3.0 High Int ensity (1): 2.5 - 3.5 Hi gh Intensity (2): 3.0 - 4.0 CRITICAL: > 4.0 Anticoagulant? NONEMedical Necessity SUSPECT COAGULOPATHYAnticoagulant? NONEMedical Necessity: SUSP [id number] 22:42:00 Test Item Value Reference Range Comments Coagulation (test code = PTT) 36.6 SEC 22.9-36.1 Anticoagulant? NONEMedical Necessity SUSPECT COAGULOPATHYAnticoagulant? NONEMedical Necessity: SUSP COAGChemistry - Body [id number] 20:56:00 Test Item Value Reference Range Comments Chemistry - Body Fluids (test code = 107 mg/dL Not Availab le Fluid Source: [] FLUGLU) FLUID SOURCE: PERITONEALChemistry - Body [id number] 20:56:00 Test Item Value Reference Range Comments Chemistry - Body Less than 1.0 Not Available Fluid Source: [ ]The reference range Fluids (test code = g/dL and other me thod FLUTP) performancespeci fications have not been established for this bodyfluid. The test result must be integrated into the clinicalcontext for interpretati on. FLUID SOURCE: [id number] 18:34:00 Test Item Value Reference Range Comments Hematology (test code = 5.8 thou/uL 4.8-10.8 WBCT) Hematology (test code = 4.10 mill/uL 4.70-6.10 RBCT) Hematology (test code = 14.0 g/dL 14.0-18.0 HGBT) Hematology (test code = 40.8 % 42.0-52.0 HCTT) Hematology (test code = 99.6 fL 78.0-98.0 MCV) Hematology (test code = 34.3 pg 27.0-31.0 MCH) Hematology (test code = 34.4 g/dL 32.0-36.0 MCHC) Hematology (test code = 14.2 % 11.5-14.5 RDW) Hematology (test code = 77 thou/uL 130-400 Confirme d by repeat PLTT) analysis. No elodia t detected. Hematology (test code = 8.9 fL 7.4-10.4 MPV) Hematology (test code = 70.5 % 42.0-75.0 %NEUT) Hematology (test code = 13.8 % 21.0-51.0 %LYMPH) Hematology (test code = 11.6 % 0.0-10.0 %MONO) Hematology (test code = 3.6 % 0.0-10.0 %EOS) Hematology (test code = 0.5 % 0.0-1.0 %BASO) Hematology (test code = 4.1 thou/uL 1.40-6.50 NEUT#) Hematology (test code = 0.8 thou/uL 1.20-3.40 LYMPH#) Hematology (test code = 0.7 thou/uL 0.11-0.59 MONO#) Hematology (test code = 0.2 thou/uL 0.0-0.7 EOS#) Hematology (test code = 0.0 thou/uL 0.0-0.2 BASO#) Hematology (test code = Appears Decreased PCOMMENT) Hematology (test code = Normal MC) [id number] 18:11:00 Test Item Value Reference Range Comments Chemistry (test code = 136 mmol/L 136-145 NA-T) Chemistry (test code = 3.2 mmol/L 3.5-5.1 K-T) Chemistry (test code = 104 mmol/L 98-107 CL) Chemistry (test code = 26 mmol/L 22-29 CO2) Chemistry (test code = 9 mmol/L 10-20 ANGP) Chemistry (test code = 14 mg/dL 8.9-20.6 BUN) Chemistry (test code = 0.74 mg/dL 0.7-1.3 CREATT) Chemistry (test code = Greater than 90 Referenc e Range for EGFRMDRD) Estimated GFR: Greater jennifer n 90 mL/min/1.73 m2NO TE:The MDRD equation has not been validated for us e with theelderly (over 70 years of age), pregnan t women, patientswith ser ious comorbid conditi on or persons with ext remes ofbody size, mus artemio mass, or nutritional s tatus. Chemistry (test code = 90 mg/dL 70-105 GLU-T) Chemistry (test code = 8.2 mg/dL 7.8-10.44 CA) Chemistry (test code = 4.6 mg/dL 0.2-1.2 TBILI-T) Chemistry (test code = 7.0 g/dL 6.0-8.3 TP) Chemistry (test code = 2.7 g/dL 3.5-5.0 ALB) Chemistry (test code = 4.3 g/dL 2.4-3.5 GLOB) Chemistry (test code = 0.6 g/dL 1.2-2.2 AG) Chemistry (test code = 110 U/L 40-150 ALP) Chemistry (test code = 57 U/L 5-34 AST) Chemistry (test code = 37 U/L 8-55 ALT) [id number] 18:11:00 Test Item Value Reference Range Comments Chemistry (test code = LIP) 28 U/L 8-78
[2020-01-28] MEDS ORDERED: FENTANYL CITR 100 MCG/2 ML ONE (08:06)
[2020-01-28] MEDS ORDERED: ONDANSETRON 4 MG/2 ML VIAL ONE (08:06)
[2020-01-28] MEDS ORDERED: PANTOPRAZOLE 40 MG INJ ONE (08:06)
[2020-01-28] MEDS ORDERED: ALBUMIN HUMAN 25% 50 ML IV ONE ×2 (08:07→11:41)
[2020-01-28 08:09] LABS: Absolute Lymphocytes (CBC) 0.3 K/uL (0.7-4.9); Basophils % 0.3 % (0-1.3); Hematocrit 40.2 % (39.6-49.0); Lymphocytes % 2.2 % (15.3-44.8); MPV 10.2 fL (7.6-11.3)
[2020-01-28 08:10] LABS: Protime INR 2.05
[2020-01-28 09:04] LABS: Albumin 1.8 g/dL (3.4-5.0); Bilirubin Direct 3.9 mg/dL (0-0.2); Potassium 4.4 mmol/L (3.5-5.1); Protein, Total 7.5 g/dL (6.4-8.2)
[2020-01-28 09:12] LABS: Bilirubin Total 8.7 mg/dL (0.2-1.0)
--- NOTE | 2020-01-28 09:42 | EKG ---
Test Date: 2020-01-28 Test Time: 08:56:03 Window Glass Installer: LITO MEASUREMENT RESULTS: Intervals: Rate: 94 NH: 154 QRSD: 90 QT: 352 QTc: 440 [place]: P: 49 NH: 154 QRS: 10 T: 14 INTERPRETIVE STATEMENTS: Normal sinus rhythm Electronically Signed On 01-28-20 09:41:22 CDT by Jeremy Ferrer
--- NOTE | 2020-01-28 11:15 | RAD REPORT ---
EXAM DESCRIPTION: US - Paracentesis Proc Guidance - 01/28/2020 10:48 am CLINICAL HISTORY: Ascites, liver disease COMPARISON: Paracentesis December 08 TECHNIQUE: The patient presents from the emergency department for ultrasound-guided paracentesis. T he procedure, risks and alternatives were discussed with the patient in detail. Oral and written cons ent were obtained. Time out procedure was performed. The patient had no contraindicated allergy or medication history. PT, INR values within acceptable limits. Preliminary sonographic evaluation identified right lower quadrant access site. The skin and deeper tissues were anesthetized with 1 percent lidocaine. Under direct sonographic visualization, a parace ntesis catheter was advanced into the peritoneal cavity. Large volume drainage was initiated. Approx imately 5 liters of can opaque ascites removed. At the conclusion of the procedure, catheter was withdrawn and a bandage placed at the puncture site. Postprocedure care and precaution instructions were given to the patient. IMPRESSION: Ultrasound-guided paracentesis as detailed.
--- NOTE | 2020-01-28 12:57 | ER ---
Nurse's Notes [facility] Name: Antoine Gomez Age: 49 yrs Sex: Male : 1970 Arrival Date: 01/28/2020 Time: 07:04 Bed 6 Private MD: Diagnosis: Alcoholic cirrhosis of liver with ascites Presentation: 01/27 07:09 Chief complaint: Patient states: abd pain x 2 days ago. Pt states "I vomited blood aa5 yesterday and today my stool is black". Pt states "I have cirrhosis of the liver and I know I am not supposed to take some medicines but I took Aleve for a headache the other day". 07:09 Coronavirus screen: Proceed with normal triage. Patient denies a cough. Patient denies aa5 shortness of breath or difficulty breathing. Patient denies measured and/or subjective temperature greater than 100.4F prior to today's visit. Patient denies travel on a cruise ship or to a country the [facility] currently lists as an affected area. Patient denies contact with known and/or suspected case of COVID-19. Ebola Screen: Patient negative for fever greater than or equal to 101.5 degrees Fahrenheit, and additional compatible Ebola Virus Disease symptoms. Initial Sepsis Screen: Does the patient meet any 2 criteria? No. Patient's initial sepsis screen is negative. Does the patient have a suspected source of infection? No. Patient's initial sepsis screen is negative. Risk Assessment: Do you want to hurt yourself or someone else? Patient reports no desire to harm self or others. Onset of symptoms was January 27, 2020. 07:09 Acuity: CONSUELO 3 aa5 07:09 Method Of Arrival: Ambulatory aa5 Triage Assessment: 07:27 General: Appears in no apparent distress. uncomfortable, Behavior is cooperative, bp appropriate for age, anxious. Pain: Complains of pain in abdomen. EENT: No deficits noted. Neuro: No deficits noted. Cardiovascular: No deficits noted. Respiratory: No deficits noted. GI: Abdomen is distended, noted to have ascites. : No signs and/or symptoms were reported regarding the genitourinary system. Derm: No deficits noted. Musculoskeletal: No deficits noted. Historical: - Allergies: 07:10 No Known Allergies; aa5 - PMHx: 07:10 Hypertension; liver cancer; cirrhosis; Hernia; aa5 - Immunization history:: Adult Immunizations unknown. - Social history:: Smoking status: Patient denies any tobacco usage or history of. Screenin:29 Abuse screen: Denies threats or abuse. Denies injuries from another. Nutritional bp screening: No deficits noted. Tuberculosis screening: No symptoms or risk factors identified. Fall Risk None identified. Assessment: 07:29 General: SEE TRIAGE NOTE. bp 09:20 Reassessment: PT RESTING, ALL CURRENT ORDERS COMPLETED, PROCEDURAL PARACENTESIS bp PENDING. PAIN IMPROVED. 10:02 Reassessment: PT TO RAD FOR PARACENTESIS. bp 10:57 Reassessment: PT RETURNED FROM RAD. PER ENLISTED AIRCREW/AERIAL OBSERVER/GUNNER, 5L FLUID REMOVED DURING PARACENTESIS. bp 11:47 Reassessment: ALBUMIN INFUSING. PT STATES RELIEF OF S/S. bp 13:09 Reassessment: PT D/C HOME AMBULATORY, DX WITH ALCOHOLIC CIRRHOSIS WITH ASCITES. bp Vital Signs: 07:09 BP 116 / 89; Pulse 92; Resp 20 S; Temp 97.8(O); Pulse Ox 98% on R/A; aa5 08:10 BP 102 / 74; Pulse 91; Resp 17; Pulse Ox 95% ; bp 09:20 BP 124 / 98; Pulse 96; Resp 16; Pulse Ox 95% ; bp 11:24 BP 109 / 93; Pulse 94; Resp 15; Pulse Ox 98% ; bp 12:43 BP 112 / 62 LA Supine; Pulse 93; Resp 18; Pulse Ox 99% on R/A; dh3 12:45 BP 106 / 72 LA Sitting; Pulse 94; Resp 18; Pulse Ox 99% on R/A; dh3 12:47 BP 103 / 75 LA Standing; Pulse 98; Resp 16; Pulse Ox 99% on R/A; dh3 ED Course: 07:04 Patient arrived in ED. as 07:09 Arm band placed on. aa5 07:13 Elijah Velasco, JESENIA is Primary Nurse. bp 07:15 Rufino Young PA is PHCP. cp 07:15 Nicko Chu MD is Attending Physician. cp 07:25 Triage completed. aa5 07:29 Patient has correct armband on for positive identification. Bed in low position. Call bp light in reach. Side rails up X2. 07:50 Inserted saline lock: 20 gauge in right forearm, using aseptic technique. Blood bp collected. 08:32 Rufino Borges MD is Attending Physician. cp 10:49 Paracentesis Proc Guidance In Process Unspecified. EDMS 12:55 Rc Harrison MD is Referral Physician. cp 13:09 No provider procedures requiring assistance completed. IV discontinued, intact, bp bleeding controlled, No redness/swelling at site. Pressure dressing applied. Administered Medications: 08:00 Drug: Albumin 25 grams Volume: 100 ml; Route: IVPB; Site: right forearm; bp 08:34 Follow up: IV Status: Completed infusion; IV Intake: 100ml bp 08:00 Drug: ProTONIX 40 mg Route: IVP; Site: right forearm; bp 08:33 Follow up: Response: No adverse reaction bp 08:00 Drug: Zofran (Ondansetron) 4 mg Route: IVP; Site: right forearm; bp 08:33 Follow up: Response: Nausea is decreased bp 08:00 Drug: fentaNYL (PF) 25 mcg Route: IVP; Site: right forearm; bp 08:34 Follow up: Response: Pain is decreased bp 11:35 Drug: Albumin 12.5 grams Volume: 50 ml; Route: IVPB; Site: right antecubital; bp 13:10 Follow up: IV Status: Completed infusion; IV Intake: 50ml bp Intake: 08:34 IV: 100ml; Total: 100ml. bp 13:10 IV: 50ml; Total: 150ml. bp Outcome: 12:56 Discharge ordered by MD. cp 13:09 Discharged to home ambulatory. bp 13:09 Condition: stable 13:09 Discharge instructions given to patient, Instructed on discharge instructions, follow up and referral plans. medication usage, Demonstrated understanding of instructions, follow-up care, medications, Prescriptions given X 1. 13:10 Patient left the ED. bp Signatures: Dispatcher [employer] EDMS Fabiola Gomez Audri, RN RN aa5 Rufino Young PA PA Caitlin Rodriguez 3 Elijah Velasco RN RN bp
--- NOTE | 2020-01-28 12:57 | EDPHYS ---
Physician Documentation [facility] Name: Antoine Gomez Age: 49 yrs Sex: Male : 1970 Arrival Date: 01/28/2020 Time: 07:04 Bed 6 Private MD: ED Physician Rufino Borges HPI: 01/27 07:32 This 49 yrs old Male presents to ER via Ambulatory with complaints of cp Abdominal Swelling, Bloody Stools. 07:32 The patient presents with abdominal pain that is diffuse, abdominal distention that is cp diffuse. Onset: The symptoms/episode began/occurred gradually. The symptoms do not radiate. Associated signs and symptoms: Pertinent positives: nausea, dark colored stool, Pertinent negatives: blood in stools, constipation, diarrhea, fever, testicular pain, vomiting. 07:32 Severity of pain: in the emergency department the pain is unchanged despite home cp interventions. Patient reports history of alcoholic cirrhosis with ascites and last paracentesis was 2 months ago. Historical: - Allergies: 07:10 No Known Allergies; aa5 - PMHx: 07:10 Hypertension; liver cancer; cirrhosis; Hernia; aa5 - Immunization history:: Adult Immunizations unknown. - Social history:: Smoking status: Patient denies any tobacco usage or history of. ROS: 07:35 Constitutional: Negative for body aches, chills, fever, poor PO intake. cp 07:35 Eyes: Negative for injury, pain, redness, and discharge. cp 07:35 ENT: Negative for drainage from ear(s), ear pain, sore throat, difficulty swallowing, difficulty handling secretions. 07:35 Cardiovascular: Negative for chest pain, edema, palpitations. 07:35 Respiratory: Negative for cough, shortness of breath, wheezing. 07:35 Abdomen/GI: Positive for abdominal pain, nausea, abdominal distension, dark colored stool, Negative for vomiting, diarrhea, constipation. 07:35 Back: Negative for radiated pain. 07:35 : Negative for urinary symptoms, testicular pain 07:35 Skin: Negative for rash. 07:35 Neuro: Negative for altered mental status, headache, weakness. 07:35 All other systems are negative. Exam: 07:40 Constitutional: The patient appears in no acute distress, alert, awake, cp non-diaphoretic, non-toxic, well developed, well nourished, uncomfortable. 07:40 Head/Face: Normocephalic, atraumatic. cp 07:40 Eyes: Periorbital structures: appear normal, Conjunctiva: normal, Sclera: no appreciated abnormality, Lids and lashes: appear normal, bilaterally. 07:40 ENT: External ear(s): are unremarkable, Nose: is normal, Mouth: Lips: moist, Oral mucosa: moist, Posterior pharynx: is normal, airway is patent. 07:40 Chest/axilla: Inspection: normal, Palpation: is normal, no crepitus, no tenderness. 07:40 Cardiovascular: Rate: normal, Rhythm: regular, Edema: is not appreciated, JVD: is not appreciated. 07:40 Respiratory: the patient does not display signs of respiratory distress, Respirations: normal, no use of accessory muscles, no retractions, labored breathing, is not present, Breath sounds: are clear throughout, no decreased breath sounds. 07:40 Skin: cellulitis, is not appreciated, no rash present. 07:40 Neuro: Orientation: to person, place \T\ time. Mentation: is normal, Motor: moves all fours, strength is normal. 07:51 Abdomen/GI: Inspection: distension, that is severe, Palpation: soft, in all quadrants, cp moderate abdominal tenderness, in all quadrants, rebound tenderness, is not appreciated, voluntary guarding, is elicited in all quadrants, Rectal exam: Stool: brown, guaiac positive, Hernia: noted in the umbilical area, tenderness, that is moderate. 09:14 ECG was reviewed by the Attending Physician. cp Vital Signs: 07:09 BP 116 / 89; Pulse 92; Resp 20 S; Temp 97.8(O); Pulse Ox 98% on R/A; aa5 08:10 BP 102 / 74; Pulse 91; Resp 17; Pulse Ox 95% ; bp 09:20 BP 124 / 98; Pulse 96; Resp 16; Pulse Ox 95% ; bp 11:24 BP 109 / 93; Pulse 94; Resp 15; Pulse Ox 98% ; bp 12:43 BP 112 / 62 LA Supine; Pulse 93; Resp 18; Pulse Ox 99% on R/A; dh3 12:45 BP 106 / 72 LA Sitting; Pulse 94; Resp 18; Pulse Ox 99% on R/A; dh3 12:47 BP 103 / 75 LA Standing; Pulse 98; Resp 16; Pulse Ox 99% on R/A; dh3 MDM: 07:20 Patient medically screened. 11:20 Data reviewed: vital signs, nurses notes, lab test result(s), EKG. cp 12:55 Response to treatment: the patient's symptoms have markedly improved after treatment. cp 12:55 ED course: VSS. Abdominal pain resolved after paracentesis. Will discharge to home for cp continued monitoring with instructions to f/u with GI. 01/27 07:33 Order name: Basic Metabolic Panel; Complete Time: 09:15 01/27 11:15 Interpretation: Normal except: NA 131; BUN 48; CRE 1.70; GFR 43; CA 8.2. 01/27 07:33 Order name: CBC with Diff 01/27 08:57 Interpretation: Normal except: WBC 13.3; RBC 4.10; HGB 13.5; PLT 94; RDW 16.1; DEEDEE% cp 82.3; LYM% 2.2; MN% 15.0; NEUT A 10.9; LYMA 0.3; MNA 2.0. 01/27 07:33 Order name: Creatinine for Radiology; Complete Time: 09:11 01/27 09:16 Interpretation: Abnormal: CRE 1.69; GFR 43. cp 01/27 07:33 Order name: Hepatic Function; Complete Time: 09:15 cp 01/27 09:49 Interpretation: Normal except: AST 56; BILIT 8.7; BILID 3.9; ALB 1.8; GLOB 5.7; A/G 0.3.cp 01/27 07:33 Order name: Lipase; Complete Time: 09:15 cp 01/27 07:33 Order name: PT-INR; Complete Time: 08:56 cp 01/27 07:33 Order name: Ptt, Activated; Complete Time: 08:56 cp 01/27 07:55 Order name: Paracentesis Proc Guidance; Complete Time: 11:24 EDNM 01/27 09:26 Order name: EKG Electrocardiogram; Complete Time: 11:03 EDMS 01/27 07:33 Order name: IV Saline Lock; Complete Time: 07:53 cp 01/27 07:33 Order name: Labs collected and sent; Complete Time: 07:53 cp 01/27 11:41 Order name: Orthostatics: after administration of albumin; Complete Time: 12:52 cp EC:14 Rate is 94 beats/min. Rhythm is regular. NE interval is normal. QRS interval is normal. cp QT interval is normal. T waves are Inverted in lead III. Interpreted by me. Reviewed by me. Administered Medications: 08:00 Drug: Albumin 25 grams Volume: 100 ml; Route: IVPB; Site: right forearm; bp 08:34 Follow up: IV Status: Completed infusion; IV Intake: 100ml bp 08:00 Drug: ProTONIX 40 mg Route: IVP; Site: right forearm; bp 08:33 Follow up: Response: No adverse reaction bp 08:00 Drug: Zofran (Ondansetron) 4 mg Route: IVP; Site: right forearm; bp 08:33 Follow up: Response: Nausea is decreased bp 08:00 Drug: fentaNYL (PF) 25 mcg Route: IVP; Site: right forearm; bp 08:34 Follow up: Response: Pain is decreased bp 11:35 Drug: Albumin 12.5 grams Volume: 50 ml; Route: IVPB; Site: right antecubital; bp 13:10 Follow up: IV Status: Completed infusion; IV Intake: 50ml bp Disposition: 01/28/20 12:56 Discharged to Home. Impression: Alcoholic cirrhosis of liver with ascites. - Condition is Stable. - Discharge Instructions: Ascites, Paracentesis. - Prescriptions for Lactulose 10 gram/15 mL Oral Solution - take 15 milliliter by ORAL route 2 times per day; 900 milliliter. - Medication Reconciliation Form, Thank You Letter, Antibiotic Education, Prescription Opioid Use form. - Follow up: Rc Harrison MD; When: 2 - 3 days; Reason: Recheck today's complaints. - Problem is chronic. - Symptoms have improved. Addendum: 01/29/2020 14:32 Co-signature as Attending Physician, Rufino Borges MD I agree with the assessment and c barboza plan of care. Signatures: Dispatcher [employer] Rufino Jimenez MD MD cha Calderon, Audri, RN RN aa5 Rufino Young PA PA Elijah Price, RN RN bp Corrections: (The following items were deleted from the chart) 01/27 08:57 08:57 Normal except: WBC 13.3; RBC 4.10; HGB 13.5; PLT 94; RDW 16.1; DEEDEE% 82.3; LYM% cp 2.2; MN% 15.0; NEUT A 10.9; LYMA 0.3. cp 09:49 09:49 Normal except: AST 56; BILIT 8.7; BILID 3.9; ALB 1.8; GLOB 5.7. cp cp 11:15 09:48 Normal except: NA 131; BUN 48; CRE 1.70; GFR 43. cp cp 13:10 12:56 01/28/2020 12:56 Discharged to Home. Impression: Alcoholic cirrhosis of liver bp with ascites. Condition is Stable. Forms are Medication Reconciliation Form, Thank You Letter, Antibiotic Education, Prescription Opioid Use. Follow up: Rc Harrison; When: 2 - 3 days; Reason: Recheck today's complaints. Problem is chronic. Symptoms have improved. cp
[2020-01-28 13:19] LABS: Blood Morphology Comment NOT SEEN (NOT SEEN); Platelet Estimate DECR; Urine White Blood Cell Casts OK
[2020-01-28 13:25] VITALS: TEMP 97.8
[2020-01-28 13:30] VITALS: O2SAT 99
[2020-01-28 13:32] VITALS: BP 103/75
== END 2020-01-28 13:10 | disposition home or self-care (01) ==
LOC: ER 07:00
PROC: 0W9G3ZX Drainage of Peritoneal Cavity, Percutaneous Approach, Diagnostic (ICD-10-PCS; principal; 2020-01-28)
DX: K70.31 Alcoholic cirrhosis of liver with ascites (principal); I10 Essential (primary) hypertension; Z85.05 Personal history of malignant neoplasm of liver
CPT/HCPCS: 36415; 49083; 80048; 80076; 83690; 85025; 85610; 85730; 93005; 99284; C9113; J2405; J3010; P9047

== ENCOUNTER 2020-01-31 01:23 | Inpatient (IN) | payer OTHER ==
[~2020-01-31 01:23] MED LIST: NA CHLORIDE 0.9% 2,000 ML ONE
--- OUTSIDE RECORDS SUMMARY | 2020-01-31 01:26 | XMS REPORT ---
:1970 [address] [facility] t Address [address] [place] [address] Care Team Providers Name Role Phone MALVIN [...] (test code = FLUIDC1) NOS Hematology - [id number] 08:57:00 Test Item Value Reference Range Comments Hematology - Fluids Peritoneal Fluid (test code = CCDIFFBF) Hematology - Fluids Cloudy/Turbid Clear (test code = CCDIFFCL) Hematology - Fluids Omer (test code = CCDIFFBFCOL) Hematology - Fluids EDTA (test code = CCDIFFTUBE) Hematology - Fluids 475 /cumm (test code = CCDIFFWBCA) Hematology - Fluids 03646 /cumm (test code = CCDIFFRBCA) Hematology - Fluids Note: The referenc e range and other (test code = method performan cespecifications CCDIFFREFR) have not been es tablished for this bodyfluid. The test result must be integrat ed into the clinicalcontext for interpretation. Source: PERITONEAL FLUIDHematology - [id number] 08:57:00 Test Item Value Reference Range Comments Hematology - Fluids (test code 22 % = CCDIFFBFNE) Hematology - Fluids (test code 57 % = CCDIFFLY) Hematology - Fluids (test code 21 % N on-Hematic cells consist of = CCDIFFNON) macrophages, endothelial,hist iocytic and mesothelial cell s. Source: PERITONEAL FLUIDHematology - [id number] 08:57:00 Test Item Value Reference Range Comments Hematology - Fluids (test code M esothelial cells, monocytes, = PATHF) lymphocytes and neutrophils.Bhupinder Zapata, [facility] CITYPT Code: 73164 (Wr ight-stained cytospin) Source: PERITONEAL [id number] 06:55:00 Test Item Value Reference Range Comments [...] (test code = 8.1 mg/dL 7.8-10.44 CA) [id number] 06:41:00 Test Item Value Reference Range Comments [...] (test code = BASO#) 0.0 thou/uL 0.0-0.2 [id number] 22:42:00 Test Item Value Reference Range Comments [...] NONEMedical Necessity SUSPECT COAGULOPATHYAnticoagulant? NONEMedical Necessity: SUSP [id number] 22:42:00 Test Item Value Reference Range Comments Coagulation (test code = PTT) 36.6 SEC 22.9-36.1 Anticoagulant? NONEMedical Necessity SUSPECT COAGULOPATHYAnticoagulant? NONEMedical Necessity: SUSP COAGChemistry - Body [id number] 20:56:00 Test Item Value Reference Range Comments Chemistry - Body Fluids (test code = 107 mg/dL Not Availab le Fluid Source: [] FLUGLU) FLUID SOURCE: PERITONEALChemistry - Body [id number] 20:56:00 Test Item Value Reference Range Comments Chemistry - Body Less than 1.0 Not Available Fluid Source: [ ]The reference range Fluids (test code = g/dL and other me thod FLUTP) performancespeci fications have not been established for this bodyfluid. The test result must be integrated into the clinicalcontext for interpretati on. FLUID SOURCE: [id number] 18:34:00 Test Item Value Reference Range Comments [...] PCOMMENT) Hematology (test code = Normal MC) [id number] 18:11:00 Test Item Value Reference Range Comments [...] (test code = 37 U/L 8-55 ALT) [id number] 18:11:00 Test Item Value Reference Range Comments Chemistry (test code = LIP) 28 U/L 8-78
[2020-01-31] MEDS ORDERED: ALBUMIN HUMAN 25% 0 ML IV ONE (01:44)
[2020-01-31 01:49] LABS: Protime INR 3.72
[2020-01-31 01:49] LABS: Arterial Blood Carboxyhemoglob 0.4 % (0-1.5); Blood Gas Oxyhemoglobin 98.1 % (94-97); Blood O2 Saturation 99.3 % (92-98.5)
[2020-01-31 01:53] LABS: Absolute Lymphocytes (CBC) 1.5 K/uL (0.7-4.9); Basophils % 0.4 % (0-1.3); Lymphocytes % 4.7 % (15.3-44.8); MPV 10.8 fL (7.6-11.3); RBC Red Blood Cell Count 3.74 M/uL (4.33-5.43)
[2020-01-31 01:58] LABS: Urine Blood 2+ (NEG); Urine Glucose NEGATIVE (NEG); Urine Protein 3+ (NEG); Urine Specific Gravity 1.025 (1.005-1.030); Urine pH 5.5 (5.0-7.0)
[2020-01-31 02:00] LABS: Urine Bacteria 20-50 /HPF (NONE SEEN); Urine Culture Reflex Order REFLEXED; Urine RBC >50 /HPF (NONE SEEN)
[2020-01-31 02:01] LABS: Urine Urothelial Cells <5 /HPF (NONE SEEN)
[2020-01-31] MEDS ORDERED: PANTOPRAZOLE 40 MG INJ ONE ×3 (02:17→12:53)
[2020-01-31] MEDS ORDERED: SODIUM BICARB 50 MEQ/50ML VIAL ONE ×2 (02:17→21:18)
[2020-01-31] MEDS ORDERED: NA CHLORIDE 0.9% 500 ML ONE ×3 (02:17→12:46)
[2020-01-31] MEDS ORDERED: OCTREOTIDE ACETATE 100 MCG/ML ONE ×2 (02:18→12:54)
[2020-01-31] MEDS ORDERED: PIPER/TAZO/NS 3.375gm 3.375 GM/100 ML BAG ONE (02:19)
[2020-01-31] MEDS ORDERED: ALBUMIN HUMAN 25% 100 ML IV ONE (02:19)
[2020-01-31] MEDS ORDERED: VANCOMYCIN 1 GM/VIAL ONE (02:20)
[2020-01-31 02:34] LABS: Albumin 1.3 g/dL (3.4-5.0); Bilirubin Direct 4.8 mg/dL (0-0.2); Protein, Total 5.6 g/dL (6.4-8.2); Troponin (Emerg Dept Use Only) 0.02 ng/mL (0.0-0.045)
[2020-01-31 02:35] LABS: Bilirubin Total 8.1 mg/dL (0.2-1.0); Potassium 6.5 mmol/L (3.5-5.1)
--- NOTE | 2020-01-31 03:04 | ER ---
Nurse's Notes [facility] Name: Antoine Gomez Age: 49 yrs Sex: Male : 1970 Arrival Date: 01/31/2020 Time: 01:23 Bed 3 Private MD: Diagnosis: Sepsis, unspecified organism;Alcoholic cirrhosis of liver with ascites;Hyperkalemia;Acute kidney failure, unspecified;Acidosis;Thrombocytopenia, unspecified Presentation: 01/30 01:30 Chief complaint: EMS states: Called for patient with shortness of breath; per EMS, lp1 patient unresponsive on arrival, BP 43/24; Given Epinephrine 0.2 x3, LR; Patient intubated with 7.0 ETT, 22 at the teeth; BGL 178; Hx of liver cancer. 01:30 Coronavirus screen: Surgical mask placed on patient. Patient moved to private room, lp1 placed in contact and droplet isolation with eye protection until further assessment. Patient reports shortness of breath or difficulty breathing. Ebola Screen: No symptoms or risks identified at this time. Initial Sepsis Screen: Does the patient meet any 2 criteria? Systolic BP < 90 mmHg. Mean Arterial Pressure (MAP) < 65. Altered Mental Status. Does the patient have a suspected source of infection? Yes: Other: unknown infection source. Risk Assessment: Do you want to hurt yourself or someone else? Unable to obtain. Onset of symptoms was January 31, 2020. 01:30 Method Of Arrival: EMS: [facility] lp1 01:30 Acuity: CONSUELO 1 lp1 01:30 Care prior to arrival: IV initiated. 18g to R AC, 20g to L AC. lp1 02:15 Note Spoke with patient's on phone; States patient was discharged from hospital 2 lp1 days ago and has been disoriented at home; states patient slept all day today and did not eat or drink anything; Noticed patient's breathing was different and called EMS. Triage Assessment: 04:01 General: Behavior is unresponsive. mg2 Historical: - Allergies: 02:30 No Known Allergies; lp1 - Home Meds: 04:23 "high blood pressure pills" [Active]; Lasix Oral [Active]; mg2 - PMHx: 02:30 Cirrhosis; Hernia; Hypertension; liver cancer; lp1 - PSHx: 02:30 Unable to obtain; lp1 - Immunization history:: Adult Immunizations unknown. - Social history:: Smoking status: unknown. Screenin:00 Abuse screen: Denies threats or abuse. Denies injuries from another. Nutritional lp1 screening: No deficits noted. Tuberculosis screening: No symptoms or risk factors identified. Fall Risk Total Merlos Fall Scale indicates High Risk Score (45 or more points). Fall prevention measures have been instituted. Side Rails Up X 2 Placed Close to Nursing Station Frequent Obs/Assessments Occuring As available patient and family educated on Fall Prevention Program and Strategies. Assessment: 02:00 General: Appears unkempt, unresponsive and intubated. Pain: Unable to use pain scale. mg2 Patient is intubated. Neuro: Level of Consciousness is unresponsive. Cardiovascular: Capillary refill is > 3 seconds is sluggish. Respiratory: Ventilator assessment: ET Tube: 7.0 23 cm at gum line. HOB > 30 degrees. Suction provided. GI: Oral gastric tube in place, to suction. : Urine is pls see urine dip. EENT: No signs and/or symptoms were reported regarding the EENT system. Derm:. Musculoskeletal: Circulation, motion, and sensation intact. Capillary refill is > 3 seconds. 03:00 Reassessment: GCS 3/15, intubated. mg2 04:02 Reassessment: dr Bedoya came and assessed the patient. mg2 05:38 Reassessment: partner informed about the patient's condition. Thayer ( mg2 ). 09:20 Reassessment: received verbal orders from ED provider for 1 amp D50 push x 1 and to em bump the bicarb drip to 150 ml/hr for critical lab values. Vital Signs: 01:25 BP 77 / 29; Pulse 94; Resp 16 A; Pulse Ox 100% on 15% BVM; lp1 01:30 BP 80 / 51; Pulse 94; Resp 18; Pulse Ox 99% on 100% FiO2 ETT vent; lp1 01:50 BP 89 / 33; Pulse 90; Resp 20; Pulse Ox 99% on 100% FiO2 ETT vent; lp1 02:04 Weight 77.11 kg; rv 02:30 BP 90 / 35; Pulse 87; Resp 16; Temp 93.5(C); Pulse Ox 99% on 100% FiO2 ETT vent; lp1 02:58 BP 92 / 29; Pulse 90; Resp 16; Temp 93.1; Pulse Ox 100% on ETT vent; mg2 03:56 BP 100 / 33; Pulse 82; Resp 16; Temp 93.1; Pulse Ox 100% on ETT vent; mg2 04:23 BP 90 / 36; Pulse 80; Resp 16; Temp 93.5(C); Pulse Ox 100% on ETT vent; mg2 05:11 BP 98 / 42; Pulse 82; Resp 16; Temp 94.3(C); Pulse Ox 100% on R/A; mg2 05:49 BP 96 / 43; Pulse 83; Resp 16; Temp 94.9(C); Pulse Ox 100% on ETT vent; mg2 ED Course: 01:23 Patient arrived in ED. ds1 01:26 Zac Porter MD is Attending Physician. tw4 01:27 Rajat Hughes, JESENIA is Primary Nurse. mg2 01:30 Patient has correct armband on for positive identification. Placed in gown. Bed in low lp1 position. Side rails up X2. monitoring analyst on. Pulse ox on. NIBP on. 01:30 Arm band placed on left wrist. lp1 01:[address] from EMS, 23 at the teeth; Checked by MD and RT. lp1 01:30 Maintain EMS IV. Dressing intact. Good blood return noted. Site clean \\T\\ dry. Gauge \\T\\ mg 2 site: 20 at LAC and 18 \\T\\ RAC. 01:39 Radiology exam delayed due to ER nursing staff currently attending patient. kw1 01:40 NGT: inserted 16 Fr. other orally verified placement of air over stomach, verified lp1 return of gastric contents, Placement verified by X-ray. 01:45 Nichols cath inserted, using sterile technique, 16 Fr., by ED staff, balloon inflated, to lp1 gravity drainage, urine specimen collected. 01:57 Notified ED physician of a critical lab result(s). WBC 31.7. lp1 02:09 Chest Single View XRAY In Process Unspecified. EDMS 02:19 Triage completed. lp1 02:23 Significant other contact number: . mt 02:34 Notified ED physician of a critical lab result(s). Lactate 13.2, AST 486, Bicarb 10, lp1 Total bilirubin 8.2, CKMB 31, K 6.5, CPK 1335. 02:46 CT Traumagram (Head C Spine CAP W Con) In Process Unspecified. EDMS 03:01 Jose Bedoya is Hospitalizing Provider. tw4 03:44 AMMONIA Sent. ds4 03:57 No provider procedures requiring assistance completed. mg2 03:58 Accessed central line [address]ter \\T\\ R Femoral area. mg2 04:22 Patient admitted, IV remains in place. mg2 07:07 Slides for Pathologist Review Sent. sv 11:46 Repeat lab(s) drawn. by ak, sent to lab. mh5 Administered Medications: 01:25 Drug: NS 0.9% (30 ml/kg) 30 ml/kg Route: IV; Rate: bolus; Site: right antecubital; mg2 04:17 Follow up: Response: No adverse reaction; IV Status: Completed infusion; IV Intake: mg2 2000ml 01:35 Drug: Albumin 25 grams Volume: 100 ml; Route: IVPB; Site: left antecubital; mg2 04:27 Follow up: Response: No adverse reaction; IV Status: Completed infusion; IV Intake: mg2 100ml 02:25 Drug: Sodium Bicarbonate 1 amp Route: IVP; Site: right antecubital; mg2 04:27 Follow up: Response: No adverse reaction mg2 02:30 Drug: vancoMYCIN 15 mg/kg Route: IVPB; Site: right antecubital; mg2 04:26 Follow up: Response: No adverse reaction; IV Status: Completed infusion mg2 02:30 Drug: Octreotide Infusion (50 mcg/hr) - (Octreotide 500 mcg, NS 0.9% 500 ml) Route: IV; mg2 Rate: 50 ml/hr; Site: right antecubital; 02:35 Drug: Zosyn 3.375 grams Route: IVPB; Infused Over: 60 mins; Site: left antecubital; mg2 04:26 Follow up: Response: No adverse reaction; IV Status: Completed infusion mg2 02:35 Drug: ProTONIX 8 mg/hr Route: IV; Rate: 25 ml/hr; Site: left antecubital; mg2 03:00 Drug: Calcium Chloride 1 grams Route: IVP; Site: right antecubital; mg2 04:26 Follow up: Response: No adverse reaction mg2 03:00 Drug: Insulin Regular Human 10 units {Co-Signature: rv (Teodoro Stocktno RN).} Route: mg2 IVP; Site: left antecubital; 04:26 Follow up: Response: No adverse reaction mg2 03:00 Drug: D50W 50 ml Route: IVP; Site: right antecubital; mg2 04:26 Follow up: Response: No adverse reaction mg2 03:30 Drug: Levophed (4 mg/250 mL D5W 4 mcg/min Route: IV; Rate: calculated rate; Site: right mg2 femoral; 04:45 Follow up: Rate change 7.5 mcg/kg/min mg2 09:24 Drug: D50W 50 ml Route: IVP; Site: right femoral; em 10:40 Follow up: Response: No adverse reaction; Blood sugar is elevated em Intake: 04:17 IV: 2000ml; Total: 2000ml. mg2 04:27 IV: 100ml; Total: 2100ml. mg2 Outcome: 03:04 Decision to Hospitalize by Provider. tw4 04:00 Admitted to ER Hold. Please see [facility] for further documentation. rv 04:00 Condition: unchanged 20:26 Patient left the ED. rv Signatures: Dispatcher [employer] Edwige Wisdom RN Tadeo Robin RN RN em Sanford, Demi ds1 Ruby Mohr RN RN 1 Silvio Bass ds4 Skylar Gomez Melinda Abbasi mt, Kimberly kw1 Zac Porter MD MD tw4 Rajat Hughes RN RN mg2 Teodoro Stockton RN RN rv Teodoro Stockton RN rv Corrections: (The following items were deleted from the chart) 04:23 02:30 Home Meds: Unable to obtain; lp1 mg2
--- NOTE | 2020-01-31 03:04 | EDPHYS ---
Physician Documentation [facility] Name: Antoine Gomez Age: 49 yrs Sex: Male : 1970 Arrival Date: 01/31/2020 Time: 01:23 Bed 3 Private MD: ED Physician Zac Comer HPI: 01/30 06:30 This 49 yrs old Male presents to ER via EMS with complaints of Unresponsive. tw4 06:30 The patient presents with decreased responsiveness. Onset: The symptoms/episode tw4 began/occurred just prior to arrival. Possible causes: unknown. Associated signs and symptoms: Pertinent positives: shortness of breath. Current symptoms: In the emergency department the patient's symptoms are unchanged from the initial presentation. Patient's baseline: Neuro: alert and fully oriented, Motor: no deficits, Ambulation: walks without assistance. Unable to obtain HPI due to patient is on ventilator. Pt intubated in the field per EMS. Pt was unresponsive per family and SOB. Pt had recent admission to the hospital for ascites related to cirrhosis . Historical: - Allergies: 02:30 No Known Allergies; lp1 - Home Meds: 04:23 "high blood pressure pills" [Active]; Lasix Oral [Active]; mg2 - PMHx: 02:30 Cirrhosis; Hernia; Hypertension; liver cancer; lp1 - PSHx: 02:30 Unable to obtain; lp1 - Immunization history:: Adult Immunizations unknown. - Social history:: Smoking status: unknown. ROS: 06:32 Unable to obtain ROS due to patient is on ventilator. tw4 Exam: 06:32 Head/Face: Normocephalic, atraumatic. Cardiovascular: Regular rate and rhythm with a tw4 normal S1 and S2. No gallops, murmurs, or rubs. Normal PMI, no JVD. No pulse deficits. 06:32 Constitutional: The patient appears comatose, intubated 06:32 Respiratory: Respirations: on ventilator . 06:32 Abdomen/GI: Inspection: distension, that is severe, Bowel sounds: diminished, Palpation: soft, in all quadrants, Hernia: noted in the umbilical area. Vital Signs: 01:25 BP 77 / 29; Pulse 94; Resp 16 A; Pulse Ox 100% on 15% BVM; lp1 01:30 BP 80 / 51; Pulse 94; Resp 18; Pulse Ox 99% on 100% FiO2 ETT vent; lp1 01:50 BP 89 / 33; Pulse 90; Resp 20; Pulse Ox 99% on 100% FiO2 ETT vent; lp1 02:04 Weight 77.11 kg; rv 02:30 BP 90 / 35; Pulse 87; Resp 16; Temp 93.5(C); Pulse Ox 99% on 100% FiO2 ETT vent; lp1 02:58 BP 92 / 29; Pulse 90; Resp 16; Temp 93.1; Pulse Ox 100% on ETT vent; mg2 03:56 BP 100 / 33; Pulse 82; Resp 16; Temp 93.1; Pulse Ox 100% on ETT vent; mg2 04:23 BP 90 / 36; Pulse 80; Resp 16; Temp 93.5(C); Pulse Ox 100% on ETT vent; mg2 05:11 BP 98 / 42; Pulse 82; Resp 16; Temp 94.3(C); Pulse Ox 100% on R/A; mg2 05:49 BP 96 / 43; Pulse 83; Resp 16; Temp 94.9(C); Pulse Ox 100% on ETT vent; mg2 Procedures: 06:34 Central Line: the site was prepped with Betadine, in sterile fashion, a triple lumen tw4 catheter was inserted, in the right femoral vein, in 1 attempts. placement was verified, by blood return, the site was dressed with Tegaderm, using sterile technique, the patient tolerated the procedure, well. MDM: 01:26 Patient medically screened. tw4 06:34 Differential Diagnosis: CVA, electrolyte abnormality, intracranial bleed, meningitis, tw4 pneumonia, sepsis, TIA, volume depletion. Data reviewed: vital signs, nurses notes. Data interpreted: meat team lead: rhythm is normal sinus rhythm, Pulse oximetry: Interpretation: normal. Test interpretation: by ED physician or midlevel provider: ECG, plain radiologic studies. Counseling: I had a detailed discussion with the patient and/or guardian regarding: the historical points, exam findings, and any diagnostic results supporting the discharge/admit diagnosis, lab results, radiology results, d/w family. Physician consultation: Jose Bedoya regarding admission, to the ICU, patient's condition, and will see patient in ED. ED course: Pt found to have multi organ system failure. Started on broad spectrum antibiotic for presumed sepsis. Also started on Levophed for pressor support/ D/W Dr Bedoya who agrees with treatment plan and admission . 01/30 01:27 Order name: Amylase, Serum 01/30 01:27 Order name: Basic Metabolic Panel 01/30 01:27 Order name: Blood Culture Adult (2) 01/30 01:27 Order name: CBC with Diff; Complete Time: 08:02 01/30 01:27 Order name: Ckmb; Complete Time: 02:57 01/30 01:27 Order name: CPK; Complete Time: 02:57 01/30 01:27 Order name: Lactate; Complete Time: 02:57 01/30 01:27 Order name: LFT's; Complete Time: 02:57 01/30 01:27 Order name: Lipase; Complete Time: 02:57 01/30 01:27 Order name: Procalcitonin; Complete Time: 02:57 01/30 01:27 Order name: Protime (+inr); Complete Time: 02:57 01/30 01:27 Order name: Ptt, Activated; Complete Time: 02:57 01/30 01:27 Order name: Troponin (emerg Dept Use Only); Complete Time: 02:57 01/30 01:27 Order name: Urine Microscopic Only; Complete Time: 02:57 01/30 01:27 Order name: ABG; Complete Time: 02:57 01/30 01:28 Order name: AMMONIA; Complete Time: 08:02 01/30 01:28 Order name: Amylase Level; Complete Time: 02:57 EDMS 01/30 01:28 Order name: Basic Metabolic Panel; Complete Time: 02:57 EDMS 01/30 01:39 Order name: Urine Dipstick--Ancillary (enter results); Complete Time: 02:57 mt 01/30 01:45 Order name: Glucose, Ancillary Testing; Complete Time: 02:57 EDMS 01/30 01:47 Order name: COVID-19; Complete Time: 08:02 tw01/30 01:47 Order name: Flu; Complete Time: 08:02 tw01/30 01:47 Order name: Strep; Complete Time: 08:02 01/30 01:54 Order name: Manual Differential; Complete Time: 08:02 EDMS 01/30 02:02 Order name: Urine Culture EDMS 01/30 02:11 Order name: Type And Screen; Complete Time: 08:02 tw4 01/30 03:23 Order name: Slides for Pathologist Review EDPR 01/30 05:55 Order name: Lactate Sepsis 2 HR Follow-up; Complete Time: 08:02 EDMS 01/30 06:15 Order name: ABO/RH no charge; Complete Time: 08:02 EDMS 01/30 01:27 Order name: Chest Single View XRAY; Complete Time: 15:10 tw4 01/30 01:27 Order name: Accucheck; Complete Time: 01:59 tw4 01/30 01:27 Order name: Cardiac monitoring; Complete Time: 01:59 tw4 01/30 01:27 Order name: EKG - Nurse/Tech; Complete Time: 02:17 tw4 01/30 01:27 Order name: IV Saline Lock - Large Bore; Complete Time: 01:59 tw4 01/30 01:27 Order name: Labs collected and sent; Complete Time: 01:59 tw4 01/30 01:27 Order name: O2 Per Protocol; Complete Time: 01:59 tw4 01/30 01:27 Order name: O2 Sat Monitoring; Complete Time: 01:59 tw4 01/30 01:27 Order name: Urine Dipstick-Ancillary (obtain specimen); Complete Time: 02:17 tw4 01/30 01:51 Order name: CT Traumagram (Head C Spine CAP W Con); Complete Time: 15:10 tw4 01/30 07:05 Order name: Thyroid Stimulating Hormone; Complete Time: 08:02 EDMS 01/30 09:00 Order name: Comprehensive Metabolic Panel; Complete Time: 15:10 EDMS 01/30 10:33 Order name: Glucose, Ancillary Testing; Complete Time: 15:10 EDMS 01/30 12:29 Order name: Basic Metabolic Panel; Complete Time: 15:10 EDMS 01/30 12:29 Order name: Phosphorus; Complete Time: 15:10 EDMS 01/30 12:29 Order name: Magnesium; Complete Time: 15:10 EDMS 01/30 14:57 Order name: Glucose, Ancillary Testing; Complete Time: 15:10 EDMS 01/30 01:47 Order name: Droplet/Contact Precautions; Complete Time: 03:00 tw4 01/30 01:47 Order name: Notify [facility] [phone]/ ; Complete Time: 07:57 tw4 Administered Medications: 01:25 Drug: NS 0.9% (30 ml/kg) 30 ml/kg Route: IV; Rate: bolus; Site: right antecubital; mg2 04:17 Follow up: Response: No adverse reaction; IV Status: Completed infusion; IV Intake: mg2 2000ml 01:35 Drug: Albumin 25 grams Volume: 100 ml; Route: IVPB; Site: left antecubital; mg2 04:27 Follow up: Response: No adverse reaction; IV Status: Completed infusion; IV Intake: mg2 100ml 02:25 Drug: Sodium Bicarbonate 1 amp Route: IVP; Site: right antecubital; mg2 04:27 Follow up: Response: No adverse reaction mg2 02:30 Drug: vancoMYCIN 15 mg/kg Route: IVPB; Site: right antecubital; mg2 04:26 Follow up: Response: No adverse reaction; IV Status: Completed infusion mg2 02:30 Drug: Octreotide Infusion (50 mcg/hr) - (Octreotide 500 mcg, NS 0.9% 500 ml) Route: IV; mg2 Rate: 50 ml/hr; Site: right antecubital; 02:35 Drug: Zosyn 3.375 grams Route: IVPB; Infused Over: 60 mins; Site: left antecubital; mg2 04:26 Follow up: Response: No adverse reaction; IV Status: Completed infusion mg2 02:35 Drug: ProTONIX 8 mg/hr Route: IV; Rate: 25 ml/hr; Site: left antecubital; mg2 03:00 Drug: Calcium Chloride 1 grams Route: IVP; Site: right antecubital; mg2 04:26 Follow up: Response: No adverse reaction mg2 03:00 Drug: Insulin Regular Human 10 units {Co-Signature: rv (Teodoro Stockton RN).} Route: mg2 IVP; Site: left antecubital; 04:26 Follow up: Response: No adverse reaction mg2 03:00 Drug: D50W 50 ml Route: IVP; Site: right antecubital; mg2 04:26 Follow up: Response: No adverse reaction mg2 03:30 Drug: Levophed (4 mg/250 mL D5W 4 mcg/min Route: IV; Rate: calculated rate; Site: right mg2 femoral; 04:45 Follow up: Rate change 7.5 mcg/kg/min mg2 09:24 Drug: D50W 50 ml Route: IVP; Site: right femoral; em 10:40 Follow up: Response: No adverse reaction; Blood sugar is elevated em Disposition: 06:34 Critical Care:. tw4 01/31 06:39 Chart complete. tw4 Disposition: 01/31/20 03:04 Hospitalization ordered by Jose Bedoya for Inpatient Admission. Preliminary diagnosis are Sepsis, unspecified organism, Alcoholic cirrhosis of liver with ascites, Hyperkalemia, Acute kidney failure, unspecified, Acidosis, Thrombocytopenia, unspecified. - Bed requested for Intensive Care Unit. - Status is Inpatient Admission. rv - Condition is Critical. - Problem is an ongoing problem. - Symptoms have worsened. Critical care time excluding procedures: 01/30 06:34 Critical care time: Bedside Care: 60 minutes, Consultation: 5 minutes, Family tw4 Intervention: 5 minutes. Total time: 70 minutes Signatures: Dispatcher [employer] EDTsering Diaz Edgar, RN RN em Ari Spencer MD MD rn Pena, Laura, RN RN lp1 Jessi Mae, JESENIA BA Zac Comer MD MD tw4 Rajat Hughes, RN RN mg2 Teodoro Stockton RN RN rv Teodoro Stockton RN rv Corrections: (The following items were deleted from the chart) 02:48 01:29 Head Brain Wo Cont+CT.RAD.BRZ ordered. EDPR EDMS 02:48 01:40 Chest For PE Angio+CT.RAD.BRZ ordered. EDMS EDMS 02:49 01:41 Abdomen Pelvis W Con+CT.RAD.BRZ ordered. EDPR EDMS 04:17 01:47 Document PUI# ordered. tw4 mg2 04:18 01:49 TYPE AND SCREEN+BB.LAB.BRZ ordered. EDPR EDMS 04:23 02:30 Home Meds: Unable to obtain; lp1 mg2 05:09 03:04 Hospitalization Ordered by Jose Bedoya for Inpatient Admission. Preliminary cg diagnosis is Sepsis, unspecified organism; Alcoholic cirrhosis of liver with ascites; Hyperkalemia; Acute kidney failure, unspecified; Acidosis; Thrombocytopenia, unspecified. Bed requested for Telemetry/MedSurg (Inpatient). Status is Inpatient Admission. Condition is Critical. Problem is an ongoing problem. Symptoms have worsened. tw4 15:49 05:09 01/31/2020 03:04 Hospitalization Ordered by Jose Bedoya for Inpatient bd Admission. Preliminary diagnosis is Sepsis, unspecified organism; Alcoholic cirrhosis of liver with ascites; Hyperkalemia; Acute kidney failure, unspecified; Acidosis; Thrombocytopenia, unspecified. Bed requested for [facility] ER HOLD. Status is Inpatient Admission. Condition is Critical. Problem is an ongoing problem. Symptoms have worsened. cg 20:26 15:49 01/31/2020 03:04 Hospitalization Ordered by Jose Bedoya for Inpatient rv Admission. Preliminary diagnosis is Sepsis, unspecified organism; Alcoholic cirrhosis of liver with ascites; Hyperkalemia; Acute kidney failure, unspecified; Acidosis; Thrombocytopenia, unspecified. Bed requested for Intensive Care Unit. Status is Inpatient Admission. Condition is Critical. Problem is an ongoing problem. Symptoms have worsened. bd
[2020-01-31] MEDS ORDERED: D50W 25 GM/50 ML SYRINGE/VIAL IV ONE ×4 (03:12→22:05)
[2020-01-31] MEDS ORDERED: Caclcium Chloride 10% INJ SYR IV ONE (03:12)
[2020-01-31] MEDS ORDERED: INSULIN -REGULAR HUMAN 50 UNIT/0.5 ML ML ONE (03:12)
[2020-01-31 03:16] LABS: Blood Morphology Comment NOTED (NOT SEEN); Burr Cells 3+; Platelet Estimate DECR; Polychromasia 2+
[2020-01-31] MEDS ORDERED: NOREPINEPHRINE 4mg/D5W 250mL 4 MG/250 ML BAG IV ONE ×4 (03:34→18:04)
--- NOTE | 2020-01-31 04:05 | P.HP ---
Certification for Inpatient Patient admitted to: Inpatient With expected LOS: >2 Midnights Practitioner: I am a practitioner with admitting privileges, knowledge of patient current condition, hospital course, and medical plan of care. Services: Services provided to patient in accordance with Admission requirements found in Title 42 Section 412.3 of the Code of Federal Regulations Patient History Date of Service: 01/31/20 Reason for admission: Altered mental status History of Present Illness: 49-year-old gentleman with a history of liver cirrhosis, hepatocellular carcinoma, history of hepatitis-C was brought to the emergency department by EMS for severe hypotension and altered mental status. The patient was intubated on the field. Per report EMS found him with systolic blood pressure in the 40s, gave him 3 doses of epinephrine and intubated him. His blood pressure was low in the ED after IV normal saline bolus. CT head done in the emergency department reported no acute disease. CT chest, abdomen and pelvis report right pleural effusion and ascites. It also reported possible partial bowel obstruction, and a large mass in the liver. He has severe leukocytosis, coagulopathy and acidemia. He also has acute renal failure. Overall patient has multiorgan dysfunction with very poor prognosis. Central line placed in the ED. Patient is admitted to the ICU for further management. Allergies No Known Allergies Allergy (Verified 12/09/19 03:26) Home Medications: Doxycycline Hyclate 100 mg PO Q12HR #14 tablet 12/10/19 Folic Acid 1 mg PO DAILY #30 tablet 12/10/19 Furosemide 40 mg PO DAILY #30 tablet 12/10/19 Lactulose 15 ml PO BID #250 ml 12/10/19 Spironolactone 25 mg PO BID #60 tablet 12/10/19 - Past Medical/Surgical History Diabetic: No -: Hepatocellular carcinoma -: Hypertension -: Liver cirrhosis -: Hepatitis-C - Family History Family History: Reviewed- Non-Contributory - Social History Smoking Status: Never smoker Review of Systems is unable to be obtained (Due to altered mental status) Physical Examination - Physical Exam General: Unresponsive HEENT: Normocephalic, Other (Dilated pupil, unresponsive to light. ET tube, NGT.), Scleral icterus Neck: JVD not distended, No Thyromegaly Respiratory: Clear to auscultation bilaterally, Other (Upper airway transmitted sounds, breath sounds diminished on the right.) Cardiovascular: Regular rate/rhythm, Normal S1 S2, Edema (1+ bilateral lower extremity pitting edema) Capillary refill: None (Mottled skin of lower extremities) Gastrointestinal: Normal bowel sounds, Soft and benign, Other (Umbilical hernia with scabbed excoriations. Distended veins on abdominal wall.), Distended, Ascites Musculoskeletal: No erythema Integumentary: Skin lesion (Scabbed excoriations on umbilical hernia.) Neurological: Other (Unresponsive) - Studies Laboratory Data (last 24 hrs) 01/31/20 01:30: PT 42.8 H, INR 3.72, APTT 57.2 H 01/31/20 01:30: WBC 31.7 H* D, Hgb 12.6 L, Hct 39.0 L, Plt Count 129 L D 01/31/20 01:30: Sodium 129 L, Potassium 6.5 H*, BUN 84 H D, Creatinine 4.51 H D, Glucose 145 H, Total Bilirubin 8.1 H*, AST 486 H* D, ALT 148 H D, Alkaline Phosphatase 94, Amylase 97, Lipase 201 Assessment and Plan - Problems (Diagnosis) (1) Sepsis Current Visit: Yes Status: Acute (2) Septic shock Current Visit: Yes Status: Acute (3) Acute renal failure Current Visit: Yes Status: Acute (4) Metabolic encephalopathy Current Visit: Yes Status: Acute (5) Acute respiratory failure Current Visit: Yes Status: Acute (6) Hepatic failure Current Visit: Yes Status: Acute (7) Coagulopathy Current Visit: Yes Status: Acute (8) Hyperkalemia Current Visit: Yes Status: Acute (9) Metabolic acidosis Current Visit: Yes Status: Acute (10) Ascites Current Visit: No Status: Acute (11) Hepatocellular carcinoma Current Visit: No Status: Chronic (12) Paraumbilical hernia Current Visit: No Status: Chronic - Plan Admit to the ICU. Very poor prognosis. Treat hyperkalemia with sodium bicarb, D50, IV insulin. Bicarb drip in Dextrose infusion Levophed drip Broad-spectrum IV antibiotic-cefepime and vancomycin Follow cultures. Trial of vitamin K for coagulopathy. Follow ammonia level. Nichols catheter. Consult to pulmonary and nephrology. NG-tube to suction Mechanical ventilation. Discuss code status and overall goals of care with the family. Patient has very poor prognosis at the moment and would recommend comfort measures. - Advance Directives Does patient have a Living Will: No Does patient have a Durable POA for Healthcare: No
[2020-01-31 06:04] VITALS: BMI 29.2
[2020-01-31] MEDS ORDERED: VITAMIN K (ADULT) 10 MG/ML IVP SCH (06:11)
[2020-01-31] MEDS ORDERED: ACETAMINOPHEN 500 MG TAB PO PRN (06:11)
[2020-01-31] MEDS ORDERED: INSULIN -REGULAR HUMAN 50 UNIT/0.5 ML ML IV ONE ×2 (06:11→22:09)
[2020-01-31] MEDS ORDERED: GLUCAGON 1 MG/VIAL IM PRN (06:11)
[2020-01-31] MEDS ORDERED: D50W 25 GM/50 ML SYRINGE/VIAL IV PRN (06:11)
[2020-01-31] MEDS ORDERED: D5W 1,000 ML with NA BICARB 8.4% 150 MEQ IV SCH ×6 (06:11→19:00)
[2020-01-31] MEDS ORDERED: ONDANSETRON 4 MG/2 ML VIAL IV PRN (06:11)
[2020-01-31] MEDS ORDERED: VANCOMYCIN 2 GM in NA CHLORIDE 0.9% 500 ML IVPB ONE (07:00)
[2020-01-31] MEDS ORDERED: VITAMIN K (ADULT) 10 MG/ML ONE (07:28)
[2020-01-31] MEDS ORDERED: WATER FOR INJ,STERILE 10 ML ONE (07:56)
[2020-01-31] MEDS ORDERED: CEFEPIME/SWI 1gm 10 ML IV SCH (08:00)
[2020-01-31] MEDS: HYDROCORTISONE SUC 100 MG INJ IV SCH ×2 (08:03→21:20)
--- NOTE | 2020-01-31 08:31 | RAD REPORT ---
EXAM DESCRIPTION: Irvin Single View01/31/2020 2:08 am CLINICAL HISTORY: Shortness of breath COMPARISON: November 2019 FINDINGS: Endotracheal tube has its tip at the hayder pointing towards right mainstem bronchus Left hemithorax is hazy likely secondary to a pleural effusion Left basilar atelectasis Right lung appears grossly clear. Heart is normal size
[2020-01-31] MEDS: WATER FOR INJ,STERILE 10 ML IV SCH ×2 (08:32→21:21)
[2020-01-31 08:56] LABS: Albumin 1.7 g/dL (3.4-5.0); Bilirubin Total 9.7 mg/dL (0.2-1.0); Protein, Total 5.8 g/dL (6.4-8.2)
[2020-01-31 09:00] LABS: Potassium 6.4 mmol/L (3.5-5.1)
[2020-01-31] MEDS ORDERED: CEFEPIME 1 GM/VIAL IV SCH (09:00)
--- NOTE | 2020-01-31 10:27 | RAD REPORT ---
EXAM DESCRIPTION: CT - Head C Spine Cap W Con - 01/31/2020 5:34 am CLINICAL HISTORY: Altered mental status COMPARISON: None. TECHNIQUE: CT head without contrast and CT chest, abdomen and pelvis with IV contrast on 01/31/2020 1: 51 AM CDT This exam was performed according to our departmental dose-optimization program, which includes autom ated exposure control, adjustment of the mA and/or kV according to patient size and/or use of iterati ve reconstruction technique. FINDINGS: Brain: There is no acute hemorrhage, mass effect or midline shift. Ogden-white differentiat ion is preserved. There is no hydrocephalus. There is no significant volume loss for age. The calvarium is intact. Orbits and globes are unremarkable. The paranasal sinuses are clear. Mastoid air cells are clear. Vascular: Thoracic aorta is normal in course and caliber without aneurysm or dissection. Pulmonary ar teries are adequately opacified without acute or chronic filling defects. Abdominal aorta is normal i n course and caliber without aneurysm. Pelvic arteries are patent without aneurysm or occlusion. Chest: The heart is normal in size. There is no pericardial effusion. Intrathoracic lymph nodes are n ot enlarged. NG tube tip is in the upper stomach. Endotracheal tube tip is at the hayder. There is a small right pleural effusion. There is a large left pleural effusion. There is fluid throu ghout the esophagus. Central airways are patent. There is moderate bibasilar atelectasis. Underlying airspace disease is not completely excluded. There is massive amount of ascites throughout the abdome n. Abdomen: Liver is severely cirrhotic with multiple low-density masses present, including the largest in the posterior right lobe of the liver measuring 7.5 cm. There is no biliary dilatation. Gallbladde r contains multiple gallstones. Stomach is distended with fluid. The pancreas and spleen are normal i n appearance. Right adrenal mass measures 1.8 cm. Left adrenal gland is normal. Kidneys are mildly at rophic. There is no free air. There is no retroperitoneal adenopathy.There is recanalization of the umbilical vein. Pelvis: There are multiple mildly dilated small bowel loops proximally with decompressed distal small bowel. Urinary bladder is decompressed with a Nichols catheter. There is large amount of free pelvic f luid. There are bilateral fat-containing small inguinal hernias. Appendix is likely normal. Skeleton: There are no acute osseous findings. No suspicious bony lesions. IMPRESSION: Suspect developing small bowel obstruction with no clear transition point. Hepatic cirrhosis with multiple suspicious hepatic masses. Recommend MRI. Massive ascites. Bilateral pleural effusions. No acute intracranial findings. Electronically signed by: Jules Stoddard MD 01/31/2020 2:55 AM CDT Due to temporary technical issues with the PACS/Fluency reporting system, reports are being signed by the in house radiologist as a courtesy to ensure prompt reporting. The interpreting radiologist is f ully responsible for the content of the report.
--- NOTE | 2020-01-31 10:50 | EKG ---
Test Date: 2020-01-31 Test Time: 01:26:51 [facility] [employer] [facility]: [facility] MEASUREMENT RESULTS: Intervals: Rate: 95 AR: 152 QRSD: 108 QT: 390 QTc: 490 [place]: P: 36 AR: 152 QRS: -33 T: 54 INTERPRETIVE STATEMENTS: Normal sinus rhythm Left axis deviation Prolonged QT Abnormal ECG Compared to ECG 01/28/2020 08:56:03 Left-axis deviation now present Prolonged QT interval now present Electronically Signed On 01-31-20 10:48:59 CDT by Jeremy Ferrer
[2020-01-31 12:27] LABS: Phosphorus 9.2 mg/dL (2.5-4.9)
[2020-01-31 12:28] LABS: Magnesium 2.6 mg/dL (1.8-2.4)
[2020-01-31 12:29] LABS: Potassium 6.5 mmol/L (3.5-5.1)
[2020-01-31] MEDS ORDERED: SOD POLYSTYREN SUL 15 GM/60 ML UCUP PO ONE ×2 (12:43→22:05)
[2020-01-31] MEDS ORDERED: NA CHLORIDE 0.9% 250 ML ONE (12:53)
[2020-01-31] MEDS ORDERED: MIDODRINE HCL 5 MG TABLET PO SCH (14:00)
[2020-01-31] MEDS: EPINEPHrine 4 MG in NA CHLORIDE 0.9% 250 ML IV PRN ×3 (14:58→22:29)
[2020-01-31] MEDS ORDERED: SODIUM BICARB 50 MEQ/50ML VIAL IV ONE (15:00)
--- NOTE | 2020-01-31 16:17 | P.PN ---
Subjective Date of Service: 01/31/20 Chief Complaint: Respiratory failure multiorgan failure Subjective: Worsening (Patient's condition is deteriorating) Review of Systems is unable to be obtained Physical Examination - Vital Signs Temperature: 98.5 F Blood Pressure: 59/39 Pulse: 94 Respirations: 30 Pulse Ox (%): 93 - Physical Exam General: Unresponsive Respiratory: Crackles/rales Cardiovascular: Regular rate/rhythm, Edema Gastrointestinal: Other, Ascites (massive hernia) - Studies Laboratory Data (last 24 hrs) 01/31/20 01:30: PT 42.8 H, INR 3.72, APTT 57.2 H 01/31/20 01:30: WBC 31.7 H* D, Hgb 12.6 L, Hct 39.0 L, Plt Count 129 L D 01/31/20 01:30: Sodium 129 L, Potassium 6.5 H*, BUN 84 H D, Creatinine 4.51 H D, Glucose 145 H, Total Bilirubin 8.1 H*, AST 486 H* D, ALT 148 H D, Alkaline Phosphatase 94, Amylase 97, Lipase 201 Microbiology Data (last 24 hrs): 01/31/20 02:30 Nasopharnyx Coronavirus COVID-19 PCR - Final 01/31/20 02:00 Blood - Blood Anaerobic Blood Culture - Final 01/31/20 02:30 Throat Group A Streptococcus Rapid Screen - Final 01/31/20 02:30 Nasopharnyx Influenza Type A Antigen Screen - Final 01/31/20 02:30 Nasopharnyx Influenza Type B Antigen Screen - Final Assessment & Plan - Problems (Diagnosis) (1) Septic shock Current Visit: Yes Status: Acute Plan: Patient is 49 years of age admitted with septic shock multiorgan failure he is on maximum vasopressor therapy patient has not responded to any treatment he is really struggling on the ventilator is currently hypotensive as at steroids antibiotic fluid boluses I have discussed with the patient's sister and the mother would not want the patient to suffer anymore and agreed to withdraw care the daughter of the sisters speaks very good Maori - Code Status/Comfort Care Comfort Measures: Dying Care Time Spent Managing Pts Care (In Minutes): 60
[2020-01-31] MEDS ORDERED: MORPHINE 4 MG/ML SYR IV PRN (17:32)
[2020-01-31] MEDS ORDERED: LORazepam 2 MG/ML VIAL IV PRN (17:33)
[2020-01-31] MEDS ORDERED: LORazepam 2 MG/ML VIAL IV ONE (19:00)
[2020-01-31] MEDS ORDERED: MORPHINE 4 MG/ML SYR IV ONE (19:00)
[2020-01-31] MEDS ORDERED: NA CHLORIDE 0.9% IV SCH (20:00)
[2020-01-31] MEDS ORDERED: PANTOPRAZOLE INJ 80 MG in NA CHLORIDE 0.9% 250 ML IV SCH (20:00)
[2020-01-31] MEDS ORDERED: OCTREOTIDE IV SCH (20:00)
[2020-01-31] MEDS: NOREPINEPHRINE 4 MG in D5W 250 ML IV PRN ×2 (20:25→22:29)
[2020-01-31 21:10] LABS: Potassium 6.8 mmol/L (3.5-5.1)
[2020-01-31] MEDS ORDERED: D5W 1,000 ML IV ONE (21:17)
[2020-01-31 22:01] VITALS: O2SAT 92
[2020-01-31] MEDS ORDERED: FLUDROCORTISONE 0.1 MG TAB FT ONE (22:08)
[2020-01-31] MEDS ORDERED: CALCIUM GLUCONATE 1 GM IVPB 1 GM/50 ML BAG IV ONE (22:25)
[2020-01-31] MEDS: CALCIUM GLUC 10% INJ 4.65 MEQ in NA CHLORIDE 0.9% 100 ML IV SCH (22:28)
[2020-01-31] MEDS ORDERED: ALBUTEROL 2.5 MG/3 ML NEB SOL ONE (22:30)
[2020-01-31] MEDS: ALBUTEROL 2.5 MG/3 ML NEB SOL NEB SCH (22:30)
[2020-01-31] MEDS ORDERED: EPINEPHRINE/PF 1 MG/ML AMP ONE ×2 (22:43→22:52)
[2020-02-01] MEDS ORDERED: THIAMINE 200 MG/2 ML INJ IVP ONE (00:15)
[2020-02-01] MEDS: ALBUTEROL 2.5 MG/3 ML NEB SOL NEB SCH ×2 (00:32→02:39)
[2020-02-01] MEDS ORDERED: PANTOPRAZOLE 40 MG INJ ONE (00:44)
[2020-02-01] MEDS ORDERED: OCTREOTIDE ACETATE 500 MCG/ML ONE (00:45)
[2020-02-01] MEDS ORDERED: NA CHLORIDE 0.9% 250 ML ONE ×3 (00:46→04:15)
[2020-02-01] MEDS ORDERED: NA CHLORIDE 0.9% 500 ML ONE (00:46)
[2020-02-01] MEDS ORDERED: SOD POLYSTYREN SUL 15 GM/60 ML UCUP PO ONE (01:00)
[2020-02-01] MEDS ORDERED: NOREPINEPHRINE 4 MG/4 ML VIAL ONE (01:02)
[2020-02-01] MEDS: EPINEPHrine 4 MG in NA CHLORIDE 0.9% 250 ML IV PRN ×2 (01:41→04:10)
[2020-02-01] MEDS: CALCIUM GLUC 10% INJ 4.65 MEQ in NA CHLORIDE 0.9% 100 ML IV SCH (01:42)
[2020-02-01] MEDS ORDERED: CALCIUM GLUCONATE 1 GM IVPB 1 GM/50 ML BAG IV ONE (01:46)
--- NOTE | 2020-02-01 02:27 | CON ---
Date of Consultation: 01/31/2020 Chief Complaint: Severe acute kidney injury, oliguric associated with severe renal hypoperfusion in setting of sepsis and septic shock. History Of Present Illness: Patient was found to have critically low blood pressure. He is on multiple pressors. He is intubated and is admitted to ICU. He is a 49-year-old man with history of liver cirrhosis, hepatocellular carcinoma, history of hepatitis C, was brought to the emergency room for severe hypotension, altered mental status. The patient was intubated in the field as per EMS. Systolic blood pressure was in 40s, he was given 3 doses of epinephrine and subsequently he was intubated. CT scan of the head done in the emergency room department reported no acute disease. CT scan of the chest, abdomen, and pelvis showed right pleural effusion and ascites. The patient has possible bowel obstruction as well as large mass in the liver. He has severe leukocytosis, coagulopathy, and acidotic along with hyperkalemia, he was treated with multiple doses of Kayexalate, received IV sodium bicarbonate boluses and drip, bicarbonate is gradually improving. Family decided to withdraw the care, but subsequently his changed status to DNR. Patient is admitted to ICU. He remains critically ill. Prognosis is overall remains very poor. Potassium level is fluctuating from 6.5 to 6.8. Prior to this admission, he was taking spironolactone and renal function test showed creatinine within normal limits. Patient was treated at home with spironolactone, lactulose, furosemide, doxycycline, as well as folic acid. Review of Systems: Unobtainable, the patient is intubated and is unresponsive. Past Medical History: The patient does not have diabetes. He has history of hepatocellular carcinoma, hypertension, hepatitis C, liver cirrhosis. Social History: Never smoker. Family History: Noncontributory. No history of kidney disease. Physical Examination: EYES : icterus , no hemorrhagic changes HEENT: Normocephalic, unresponsive. ET tube, NG tube in place. Scleral icterus present. NECK: No thyromegaly. no JVD RESPIRATORY: Bilateral breath sounds present. No wheezing. No rhonchi. HEART: S1, S2. No pericardial friction or rub. EXTREMITIES: Edema 1 to 2+ pitting edema. GI: Normal bowel sounds. Soft, benign. SKIN: Icteric skin, scab excoriation on umbilical area. NEUROLOGICAL: Unresponsive. No seizure. No tremor. Laboratory Data: PT 42.8, INR 3.72, PTT 57.2. Sodium 129, potassium 6.5, BUN 84, creatinine 4.51, glucose 145, total bilirubin 8.1, AST 486, ALT 148, lipase 201. Impression: 1. Severe acute kidney injury, oliguric secondary to severe acute tubular necrosis in setting of cardiorenal syndrome. Prognosis is very poor. Patient has hyperkalemia and metabolic acidosis. Continue IV bicarbonate drip, IV glucose and insulin along with nebulizer with albuterol for treatment of hyperkalemia, patient also received Kayexalate to treat hyperkalemia. Plan is to reassess potassium level in few hours after treatment was resumed with kayexalate, Insulin and Dextrose along with albuterol nebulization and IV calcium gluconate. 2. The patient will continue IV bicarbonate drip for metabolic acidosis. Bicarbonate level has improved. 3. Metabolic encephalopathy per primary team likely liver cirrhosis related and the patient will have ammonia level checked. 4. Respiratory failure. The patient is intubated. Possible sepsis. Antibiotics per primary team and Pulmonary service. EB/MODL Voice ID: [id number] Report ID: [id number] JAREN
[2020-02-01] MEDS ORDERED: NOREPINEPHRINE 4mg/D5W 250mL 4 MG/250 ML BAG IV ONE (03:43)
[2020-02-01 06:34] VITALS: BP 52/32; TEMP 98.2
--- NOTE | 2020-02-01 07:37 | P.DS ---
Admission Date: 01/31/20 Discharge Date: 02/01/20 Discharge Condition: Reason for Admission: Respiratory failure multiorgan failure - Problems (1) Septic shock Current Visit: Yes Status: Acute Brief History of Present Illness: Patient is 49 years of age with cirrhosis of the liver admitted with a refractory septic shock Hospital Course: Patient was intubated seen by Nephrology multiorgan failure refractory shock despite multiple vasopressors discuss with family members the all came to visit him from [place] and patient finally at 5:00 a.m. on January 31 initial plan was to withdraw care in the emergency room with a decided to visit him Vital Signs/Physical Exam: Temp Pulse Resp BP Pulse Ox 98.2 F 33 L 27 H 52/32 L 96 02/01/20 05:15 02/01/20 05:15 02/01/20 05:15 02/01/20 05:15 02/01/20 01:00 Laboratory Data at Discharge: WBC Cancelled 02/01/20 12:43 Hgb Cancelled 02/01/20 12:43 Hct Cancelled 02/01/20 12:43 Plt Count Cancelled 02/01/20 12:43 PT Cancelled 02/01/20 05:00 INR Cancelled 02/01/20 05:00 APTT 57.2 SECONDS (24.3-36.9) H 01/31/20 01:30 Sodium Cancelled 02/01/20 05:00 Potassium Cancelled 02/01/20 05:00 BUN Cancelled 02/01/20 05:00 Creatinine Cancelled 02/01/20 05:00 Glucose Cancelled 02/01/20 05:00 Phosphorus Cancelled 02/01/20 05:00 Magnesium Cancelled 02/01/20 05:00 Total Bilirubin Cancelled 02/01/20 05:00 AST Cancelled 02/01/20 05:00 ALT Cancelled 02/01/20 05:00 Alkaline Phosphatase Cancelled 02/01/20 05:00 Triglycerides Cancelled 02/01/20 05:00 Cholesterol Cancelled 02/01/20 05:00 HDL Cholesterol Cancelled 02/01/20 05:00 Cholesterol/HDL Ratio Cancelled 02/01/20 05:00 Amylase 97 U/L (25-115) 01/31/20 01:30 Lipase 201 U/L (73-393) 05/04/20 01:30 Home Medications: Doxycycline Hyclate 100 mg PO Q12HR #14 tablet 12/10/19 Folic Acid 1 mg PO DAILY #30 tablet 12/10/19 Furosemide 40 mg PO DAILY #30 tablet 12/10/19 Lactulose 15 ml PO BID #250 ml 12/10/19 Spironolactone 25 mg PO BID #60 tablet 12/10/19
[2020-02-01] MEDS ORDERED: VANCOMYCIN/NS 1 gm 1 GM/250 ML BAG IVPB SCH ×2 (08:00)
[2020-02-01] MEDS ORDERED: FLUDROCORTISONE 0.1 MG TAB PO SCH (09:00)
== END 2020-02-01 05:18 | disposition expired | DRG 871 ==
LOC: ER 01:23 → ERHOLD 04:35 → 3RD-ICU 19:44
PROVIDERS: ADMIT Internal Medicine; ATTEND Internal Medicine Sleep Medicine
PROC: 5A1945Z Respiratory Ventilation, 24-96 Consecutive Hours (ICD-10-PCS; principal; 2020-01-31)
PROC: 06HY33Z Insertion of Infusion Device into Lower Vein, Percutaneous Approach (ICD-10-PCS; 2020-01-31)
DX: A41.9 Sepsis, unspecified organism (principal); R65.21 Severe sepsis with septic shock; G93.41 Metabolic encephalopathy; J96.00 Acute respiratory failure, unspecified whether with hypoxia or hypercapnia; N17.0 Acute kidney failure with tubular necrosis; E87.2 Acidosis; R18.8 Other ascites; K74.60 Unspecified cirrhosis of liver; Z66 Do not resuscitate; Z79.899 Other long term (current) drug therapy; Z85.05 Personal history of malignant neoplasm of liver; R16.0 Hepatomegaly, not elsewhere classified; I10 Essential (primary) hypertension; K72.90 Hepatic failure, unspecified without coma; E87.5 Hyperkalemia; Z20.828 Contact with and (suspected) exposure to other viral communicable diseases
CPT/HCPCS: 36415; 49083; 51702; 70450; 71045; 71260; 72125; 74177; 80048; 80053; 80076; 81003; 81015; 82140; 82150; 82550; 82553; 82805; 82947; 83605; 83690; 83735; 84100; 84145; 84443; 84484; 85025; 85610; 85730; 86850; 86900; 86901; 87040; 87070; 87077; 87081; 87086; 87088; 87186; 87205; 87804; 93005; 94002; 94640; 99284; 99291; 99292; C9113; J0171; J0610; J0692; J1720; J2354; J2405; J2543; J3010; J3370; J3411; J3430; J7030; J7040; J7060; P9047; Q9967; U0002